=== PATIENT | female | born 1945 | race Caucasian/White ===

== ENCOUNTER 2017-05-11 06:16 | Inpatient (IN) | payer BC, MEDICARE ==
--- NOTE | 2017-04-29 22:45 | HP ---
AMENDED REPORT NOW INCLUDES COSIGNER DESIGNATION - ESIGNED BEFORE ADJUSTMENT PREOPERATIVE HISTORY AND PHYSICAL: DATE OF ADMISSION/SURGERY: 05/11/17 DATE OF OFFICE VISIT: 04/28/17 ATTENDING SURGEON: Dr. Gia Del Cid * (DICTATED BY MELVINA BANKS) PROCEDURE: Left total shoulder reverse. CHIEF COMPLAINT: Left shoulder pain. HISTORY OF PRESENT ILLNESS: Alva is a 72-year-old left-hand dominant female , who presents to the clinic for ongoing left shoulder pain due to a massive rotator cuff tear and osteoarthritis of the left shoulder. She has failed conservative measures and has therefore agreed to undergo a left total shoulder reversal with Dr. Del Cid on 05/11/17. PAST MEDICAL HISTORY: Hypertension; diabetes, type 2; arthritis. PAST SURGICAL HISTORY: Cataract removal, bilateral shoulders, left wrist, tonsillectomy, D and C, and tubal ligation. MEDICATIONS: 1. Famotidine 20 mg 1 by mouth twice a day. 2. Lisinopril 10 mg 1 by mouth every day. 3. Diclofenac sodium 75 mg 1 tablet by mouth twice a day with food. 4. Metformin 500 mg 1 by mouth twice a day. 5. Calcium 600 and vitamin D 600/200 mg take 1 daily. 6. Vitamin C 500 mg 1 by mouth every day. 7. Ibuprofen 200 mg as needed. ALLERGIES: SULFA ANTIBIOTICS. FAMILY HISTORY: Positive for diabetes, hypertension, and heart disease. Denies family history of DVT or PE. SOCIAL HISTORY: She lives with her son. 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 She denies tobacco use. She reports occasional alcohol consumption. She is left hand dominant. REVIEW OF SYSTEMS: A 14-point review of systems was reviewed with the patient. Positive for the current complaint, otherwise negative. Denies history of DVT or PE. Denies bleeding disorder. Denies chest pain or shortness of breath. Denies prior complications with anesthesia. PHYSICAL EXAMINATION GENERAL: Well-developed, well-nourished, 72-year-old female, in no acute distress. Alert and oriented x3, appropriate mood and affect. VITAL SIGNS: Height 66, weight 172, blood pressure 140/74, respiratory rate 20 , temperature 97.4, BMI 27.8. HEENT: Normocephalic, atraumatic. PERRLA. NECK: Supple. Throat clear. PULMONARY: Lungs clear to auscultation bilaterally. No wheezing, rhonchi, or rales. CARDIO: Regular rate and rhythm, S1 and S2. No murmurs, gallops, or rubs. No edema. ABDOMEN: Positive bowel sounds, soft, nontender. NEURO: Alert and oriented x3. Cranial nerves grossly intact. Sensation is intact to light touch. MUSCULOSKELETAL: Left upper extremity: Skin is intact. No warmth or erythema. Forward flexion to 80 degrees, passively to 140. Abduction actively to 75 degrees, passively to 110. External rotation to 10 degrees, internal rotation to lumbar spine. +4/5 strength to supraspinatus testing. Positive Donn's. Positive Priest- Matt, Speed, and [place]. +2 radial pulse. Sensation intact to light touch distally. DIAGNOSTIC STUDIES: Multiple view x-rays of the left shoulder reveals severe osteoarthritis with superior migration of the humeral head. CT reveals the same thing. IMPRESSION: Left shoulder severe osteoarthritis and massive rotator cuff tear. PLAN: The patient is scheduled to undergo a left total shoulder reverse with Dr. Del Cid on 05/11/17. Preop labs revealed a urinary tract infection, which was treated with antibiotics. The patient will follow up with Dr. Del Cid 10 to 14 days postop for followup and suture removal. Percocet will be used for postop pain management. MELVINA BANKS [id number]/[facility] #: [id number] [facility]
[~2017-05-11 06:16] MED LIST: Buffered Lidocaine 0.9% SYRIN* 5 ML/SYR SYRINGE INTRADERM ONE; Famotidine IV* 10 MG/ML 2 ML (20 mg) IV ONE
[2017-05-11] MEDS ORDERED: Famotidine IV* 10 MG/ML 2 ML (20 mg) ONE (06:50)
[2017-05-11] MEDS ORDERED: Buffered Lidocaine 0.9% SYRIN* 5 ML/SYR SYRINGE ONE (06:50)
[2017-05-11] MEDS ORDERED: ceFAZolin 2 GM PREMIX (*) 50 ML IVPB ONE (06:51)
[2017-05-11] MEDS ORDERED: Midazolam* 1 MG/ML 5 ML VIAL (5 MG) ONE (07:12)
[2017-05-11] MEDS ORDERED: fentaNYL* 50 MCG/ML 2 ML VIAL (100 MCG VIAL) ONE (07:12)
[2017-05-11] MEDS ORDERED: ROPIVACAINE 5 MG/ML 30 ML BTL (0.5%) ONE (07:34)
[2017-05-11] MEDS ORDERED: Lidocaine 2% PF* 10 ML AMP ONE (07:34)
[2017-05-11] MEDS ORDERED: KETAMINE HCL* 50 MG/ML 10 ML VIAL ONE (08:53)
[2017-05-11] MEDS ORDERED: Lidocaine 2% PF * 5 ML VIAL ONE (09:05)
[2017-05-11] MEDS ORDERED: Propofol* 10 MG/ML 20 ML BTL IV PUSH ONE (09:05)
[2017-05-11] MEDS ORDERED: Ondansetron INJ* 2 MG/ML VIAL ONE (09:05)
[2017-05-11] MEDS ORDERED: Succinylcholine* 20 MG/ML 10 ML VIAL ONE (09:05)
[2017-05-11] MEDS ORDERED: Ketorolac INJ* 30 MG/ML 1 ML VIAL ONE (09:05)
[2017-05-11] MEDS ORDERED: Dexamethasone IV* 4 MG/ML 1 ML (4 MG) ONE (09:05)
[2017-05-11] MEDS ORDERED: DiMENhydriNATE IV* 50 MG/ML VIAL IV PUSH PRN (09:38)
[2017-05-11] MEDS ORDERED: HYDROmorphone INJ* 1 MG/ML CARPUJECT SYRINGE IV PRN (09:38)
[2017-05-11] MEDS ORDERED: oxyCODONE/Acetamin 5/325 MG* TAB PO PRN (09:38)
[2017-05-11] MEDS ORDERED: Gabapentin CAP(*) 300 MG PO ONE (09:43)
[2017-05-11] MEDS ORDERED: HYDROmorphone INJ* 1 MG/ML CARPUJECT SYRINGE ONE (10:19)
[2017-05-11] MEDS ORDERED: Bisacodyl SUPP* 10 MG SUPP PR PRN (10:56)
[2017-05-11] MEDS ORDERED: Polyethylene Glycol 3350* 17 GM PACKET PO PRN (10:56)
[2017-05-11] MEDS ORDERED: Temazepam CAP* 15 MG PO PRN (10:56)
[2017-05-11] MEDS ORDERED: Acetaminophen TAB* 325 MG PO PRN (10:56)
[2017-05-11] MEDS ORDERED: Morphine INJ* 2 MG/ML 1 ML SYRINGE (TWO MG - NEW SYRINGE VERSION) IV PRN (10:56)
[2017-05-11] MEDS ORDERED: Magnesium Hydroxide LIQ* 30 ML UDC PO PRN (10:56)
[2017-05-11] MEDS ORDERED: oxyCODONE TAB* 5 MG TAB PO PRN (10:56)
[2017-05-11] MEDS ORDERED: Ondansetron INJ* 2 MG/ML VIAL IV PRN (10:56)
[2017-05-11] MEDS ORDERED: diPHENhydraMINE IV* 50 MG/ML 1 ml VIAL (BENADRYL) IV PRN (10:56)
--- NOTE | 2017-05-11 12:15 | RAD ---
INDICATION: Postoperative. Left shoulder arthroplasty COMPARISON: December 24, 2016 TECHNIQUE: Routine frontal and Y views were obtained. FINDINGS: There is reversal shoulder arthroplasty. Both scapular and humeral components appear well seated. There are soft tissue changes compatible with recent surgery. There is AC joint osteoarthritis. IMPRESSION: LEFT SHOULDER ARTHROPLASTY. NO EVIDENCE OF HARDWARE FAILURE.
[2017-05-11] MEDS ORDERED: Dextrose 50% Syringe 50 ML* 25 GM/50 ML SYRINGE IV PUSH PRN (13:12)
--- NOTE | 2017-05-11 16:00 | CONS ---
CONSULTATION REPORT: DATE OF CONSULTATION: 05/11/17 ATTENDING SURGEON: Dr. Del Cid. CONSULTING PHYSICIAN: Dr. Everardo Bowens (dictation provided by Abraham Stahl NP) . PRIMARY CARE PHYSICIAN: Dr. Peng. PROCEDURE TODAY: Left total shoulder, reverse. HISTORY OF PRESENT ILLNESS: Alva is a 72-year-old female who was having ongoing left shoulder pain due to massive rotator cuff tear and osteoarthritis of the left shoulder. She has failed conservative measures and therefore today had a left total shoulder reverse with Dr. Del Cid. PAST MEDICAL HISTORY: Hypertension, diabetes type 2, and arthritis. PAST SURGICAL HISTORY: Cataract removal, bilateral shoulders, left wrist, tonsillectomy, D and C, and tubal ligation. HOME MEDICATIONS: 1. Sudafed 30 mg p.o. daily. 2. Metformin 500 mg p.o. t.i.d. 3. Ibuprofen 200 q. 8 hours p.r.n. pain. 4. Diclofenac sodium 75 mg p.o. b.i.d. 5. Calcium citrate 200 p.o. t.i.d. 6. Calcium carbonate 1 p.o. b.i.d. 7. Vitamin C 500 mg b.i.d. ALLERGIES: SULFA antibiotics. FAMILY HISTORY: Positive for diabetes, hypertension, heart disease. Denies family history of DVT or PE. SOCIAL HISTORY: She lives with her son. Denies alcohol or tobacco usage. When she is discharged from the hospital, for 1 week she will be staying with her son, Marin Felton, who was her healthcare proxy, and then she will return to her home where she lives with her other son. REVIEW OF SYSTEMS: Ms. Felton is sitting in her hospital room upright in bed , eating a clear liquid lunch. Appears her stated age and in good health. She denies visual changes, denies chest pain, shortness of breath, or cough. Denies constipation, diarrhea, hematuria, or urgency. Musculoskeletal: She denies muscle pain and at the time her left shoulder is still numb from the procedure and denies pain 0/10. Skin: She does have a dressing to the left shoulder, otherwise her skin is intact. Denies history of dizziness, anxiety, or depression. She states that she is not cold or hot intolerant. No unusual bleeding or bruising. PHYSICAL EXAM: General: She is a well developed, well nourished, 72-year-old female. She is in no acute distress, pain free. Alert and oriented x3. Upbeat in mood and affect. Her son is at the bedside visiting with her. Current vital signs: Temperature 96.8, heart rate 70, respiratory rate 16, O2 sats 96%, blood pressure is 103/70. HEENT: Normocephalic, atraumatic. Neck: Supple. She has moist mucous membranes to the mouth. Pulmonary: Lungs are clear to auscultation bilaterally. No wheezing, rhonchi, or rales. Cardio: Regular rate and rhythm. S1 and S2. No murmur, gallop, or rubs. No edema. Abdomen: Positive bowel sounds. Soft, nontender, hypoactive bowel sounds. Neuro: Alert and oriented x3. Cranial nerves grossly intact. Sensation is intact to light touch. Fingers on the left hand, she can feel but are starting to tingle with return of feeling. Musculoskeletal: Left lower extremity is in a sling. She is able to move her hand and fingers easily. Equal proc tech on both sides. Good range of motion of both legs. +2 pedal pulses. Sensation intact to light touch distally. DIAGNOSTIC STUDIES: Postoperatively, she had a shoulder x-ray, which states left shoulder arthroplasty no evidence of hardware failure. LABORATORY DATA: Her lab work since admission today her glucose preop was 133, postop is 222. On 04/15/17, her H and H showed 13.2 and 40. Her platelets count was 183. On 04/15/17 again her sodium was 138, potassium 4.5, chloride 104, carbon dioxide 26, BUN and creatinine is 25 and 1.18. Glucose was 94 at that time, which was a fasting level. Her TSH was 1.79. IMPRESSION: The patient is a 72-year-old, who after failing conservative treatment elected to have a left total shoulder reverse. She is currently sitting upright in bed having a clear liquid diet. Denies any nausea, vomiting , chest pain, or shortness of breath in the postop period. Her son is sitting at the bedside visiting with her as well. PLAN: 1. Left total shoulder reversal, to be managed by Orthopedics. 2. Hypertension. Currently is well controlled without any additional medications. 3. Diabetes type 2. We will hold her metformin. I placed her on fingersticks before meals and at h.s. We will cover before meals with lispro insulin. The patient is aware and in agreement. 4. Arthritis. We will provide pain medication as ordered. 5. FEN. She has IV LR at 100 until she has taken adequate p.o., advance diet to consistent carb as tolerated. 6. DVT prophylaxis per orthopedics. Currently, she is receiving Lovenox 40 mg daily. She is a full code. Her son, Chi, is her healthcare proxy, who she will be going home, to stay with for a week upon discharge. TIME SPENT: Time spent on this exam was approximately 60 minutes, with greater than half the time was spent [id number] with the patient obtaining history and physical, the other half was spent going over the plan of care and implementing the plan of care. I did discussed with Dr. Everardo Bowens, who is in agreement with plan. ABRAHAM STAHL, AMMON [id number]/[facility] #: [id number] [facility]
[2017-05-11] MEDS: ceFAZolin 1 GM VIAL(*) 1 GM in NS 0.9% 50 ML* 50 ML IVPB SCH (16:47)
[2017-05-11] MEDS: Insulin LISPRO* 1 UNITS UNIT SUBCUT SCH (17:55)
--- NOTE | 2017-05-11 19:00 | OP ---
OPERATIVE REPORT: DATE OF OPERATION: 05/11/17 DATE OF : 47 SURGEON: Gia Del Cid MD MECHANIC MARINE ENGINE: MELVINA Dc, as well as Glenny Mendez LPN. ANESTHESIOLOGIST: Dr. Fritz. ANESTHESIA: General interscalene block. PRE-OP DIAGNOSIS: Left shoulder rotator cuff arthropathy. OPERATIVE PROCEDURE: Left shoulder open biceps tenodesis and left reverse shoulder arthroplasty. ESTIMATED BLOOD LOSS: 200. IMPLANTS USED: Tornier Aequalis Flex Stem size 5B, reversed 6 mm polyethylene insert, 25 x 40 mm baseplate, and size 36 mm head. OUTPUT: One drain. INDICATIONS: Alva is a 72-year-old left-handed female who has had left shoulder pain. She has had previous rotator cuff repair. She has had persistent pain and incomplete relief of symptoms and she had failed conservative management. We discussed the options including reverse shoulder arthroplasty, she has elected to agree. The risks and benefits were discussed at length and include but are not limited to bleeding; infection; damage to nerves, vessels, surrounding structures; wound nonhealing; persistent pain; need for surgery; scaring; stiffness; incomplete relief of symptoms; fracture; and risk of DVT. DESCRIPTION OF PROCEDURE: The patient was greeted in the preoperative area by the attending surgeon, correct extremity was marked, consent was confirmed. The patient then underwent interscalene nerve block by the anesthesiologist after which she was brought back to the operating suite. She was placed in a supine position on the operating room table. She then underwent general anesthesia under endotracheal intubation after which she was placed in a lazy beach chair position. All bony prominences were padded. The left shoulder was draped free with chlorhexidine soap, scrub, and an alcohol wipe, and a final prep with ChloraPrep. After appropriate surgical pause indicating site, side, procedure, and administration of antibiotics, a deltopectoral incision was made sharply with a 15 blade, soft tissues were carefully dissected to expose the cephalic vein which was identified and then retracted laterally with the deltoid. Deltopectoral interval was further developed and retracted using a Kolbel retractor. The short head of the biceps was identified and the clavipectoral fascia was carefully released. The pec tendon was identified and the proximal 1.5 cm were then released using electrocautery. The biceps was then tenodesed to the pec using a heavy nonabsorbable suture, this was then tenotomized proximal so that soft tissue dissection was carefully followed into the biceps to find the bicipital groove and the borders of the subscapularis which was then released in the subscap peel back fashion. This was then tagged with a #5 Ethibond suture. This was gently retracted as the head was externally rotated. The humeral head had a full- thickness massive supraspinatus tear with tearing of the infraspinatus tendon. There was grade 4 changes of the humeral head and there were osteophytes about the neck. The head was gently externally rotated and brought through the wound, dislocated. The neck cut was then made free hand using the sagittal saw. The canal was then accessed using the canal finder, then sounding devices again sounded between a 5 and a 6 was then found to be appropriate. The broaching then began beginning with a starting broach and gradually progressed up to a size 5. This was found to have a good fit. A protection plate was then placed and the humerus was pushed back through the wound. The glenoid was then accessed and the superior, inferior, and glenohumeral ligaments were then carefully released from the capsular surface of the subscap with care to protect the nerves and vessels. Once this was released and the subscap was mobilized, it was then tucked back into the wound and the anterior aspect of the shoulder was exposed. The labrum was then removed beginning in the superior oblique to the 5 o'clock position using electrocautery device. The remaining inferior labrum was removed using a needle tip Bovie with traction on the sutures to prevent any neurovascular injury. The base of the glenoid had some remaining cartilage, although it did have some areas of grade 4 osteoarthritis with osteophytes. The cartilage was cleaned off using the Crespo , this was irrigated out of the wound. The size 25 aiming device was then used and placed in the glenoid. Inferiorly the guidewire was placed with excellent purchase. The face of the glenoid was then reamed using a 25 reamer on power and then a size 36 mm foot print reamer was then used on hand to complete the reaming to allow for the seating of the glenosphere. The cannulated drill bit 8 mm was then used to drill the baseplate and then a 6.5 mm drill was used to drill the peg hole. There was found to be a distance measured to about 40 mm. The size 40 x 25 mm glenoid base plate was then brought to the field and after the screw hole was tapped, this was then placed with excellent purchase. Three interlocking screws of the appropriate length were then placed superiorly, inferiorly, and anteriorly. The size 36 mm glenosphere was then impacted into position and the set screw was secured to allow for excellent purchase. The humerus was then brought back through the wound. The stem was accessed again and it was found to be somewhat loosened. A size 5 stem was impacted again with excellent purchase. The trial plate and liner were then chosen, the shoulder was then reduced and brought through range of motion. There was an osteophyte posterosuperiorly and the glenoid that was carefully removed, but range of motion is forward flexion to 150 and abduction to about 90 and external rotation to 55. The final implants were chosen and prepared on the back table by the attending surgeon. Drill holes were made through the humerus to pass #5 Ethibond sutures to then prepare the subscap. The final implant was then impacted into position with good position. The shoulder was then reduced, the wounds were copiously irrigated with sterile saline, the range of motion was still the same as with the trial stem. The subscap was closed using horizontal mattress sutures with the arm in gentle external rotation. An intraarticular drain was then placed. The wound was irrigated yet again, and the deltopectoral interval was closed with #2 Ti-Cron suture. The wounds were irrigated yet again and the skin was closed in layers with 2-0 Vicryl and then 3 -0 Monocryl. Sterile dressings were applied. A sling and Cryo/Cuff were then applied. She was awoken from anesthesia and transferred to PACU in stable condition. POSTOPERATIVE PLAN: She will get postoperative x-rays. Drain will be discharged on postop day 1. She will be on 24 hours of postoperative antibiotics. DVT prophylaxis considered and will only be done in house and she will go home on her usual regimen. She will be discharged on pain medications. I will see the patient back in 10 to 14 days. She is nonweightbearing for 6 weeks with only passive range of motion. [id number]/[facility] #: [id number] [facility]
[2017-05-11] MEDS: Famotidine TAB* 20 MG PO SCH (20:41)
[2017-05-11] MEDS: oxyCODONE/Acetamin 5/325 MG* TAB PO PRN (22:54)
[2017-05-12] MEDS: ceFAZolin 1 GM VIAL(*) 1 GM in NS 0.9% 50 ML* 50 ML IVPB SCH ×2 (00:02→07:44)
[2017-05-12] MEDS: oxyCODONE/Acetamin 5/325 MG* TAB PO PRN ×4 (03:05→21:25)
[2017-05-12 06:41] LABS: Hematocrit 23 % (35-47); Hemoglobin 7.8 g/dl (12.0-16.0); Mean Platelet Volume 9 um3 (7.4-10.4)
[2017-05-12 06:52] LABS: BUN/Creatinine Ratio 20.3 (8-20); Calcium 7.9 mg/dL (8.6-10.3); EGFR African American 58.1 (>60); EGFR Non-African American 45.2 (>60); Potassium 4.1 mmol/L (3.5-5.0)
[2017-05-12] MEDS: Insulin LISPRO* 1 UNITS UNIT SUBCUT SCH ×3 (08:29→17:53)
[2017-05-12] MEDS: Famotidine TAB* 20 MG PO SCH ×2 (08:30→21:25)
--- NOTE | 2017-05-12 11:38 | PN ---
Progress Note - Progress Note Date of Service: 05/12/17 SOAP: Subjective: []Patient seen OOB in chair. She felt lightheaded earlier this morning after working on shoulder exercises. Feels better now but does not feel ready to go home today. Her pain is well managed in her left shoulder. Objective: [] Vital Signs Temp 97.7 F 05/12/17 10:45 Pulse 75 05/12/17 10:45 Resp 16 05/12/17 10:45 BP 92/39 05/12/17 10:45 Pulse Ox 100 05/12/17 10:45 Intake & Output 05/11/17 05/12/17 05/12/17 18:59 06:59 18:59 Intake Total 2787 505 120 Output Total 500 400 Balance 2287 105 120 Intake: IV Fluids 2050 NS 50ML, Cefazolin 2G 50 lr 2000 IVPB 237 LR 237 Oral 500 505 120 Output: Hemovac Amount #1 200 Urine 500 200 Other: # Bowel Movements 0 0 Laboratory Results - last 24 hr 05/11/17 05/11/17 05/11/17 11:55 17:01 21:24 Hgb Hct Plt Count MPV Sodium Potassium Chloride Carbon Dioxide Anion Gap BUN Creatinine Est GFR ( Amer) Est GFR (Non-Af Amer) BUN/Creatinine Ratio Glucose POC Glucose (mg/dL) 222 H 196 H 169 H Calcium 05/12/17 05/12/17 05/12/17 06:31 06:31 07:50 Hgb 7.8 L Hct 23 L Plt Count 157 MPV 9 Sodium 134 Potassium 4.1 Chloride 103 Carbon Dioxide 25 Anion Gap 6 BUN 24 Creatinine 1.18 H Est GFR ( Amer) 58.1 Est GFR (Non-Af Amer) 45.2 BUN/Creatinine Ratio 20.3 H Glucose 130 H POC Glucose (mg/dL) 147 H Calcium 7.9 L Left shoulder dressings clean and dry, hemovac drain discontinued without difficulty, tip intact sling donned full motion all digits, 2+ radial pulse, excellent cap refill Assessment: []s/p Left reverse shoulder arthroplasty POD #1 acute post operative anemia Plan: []PT/OT Left shoulder 1 unit PRBC transfusion today Probable discharge home Tuesday if stable
[2017-05-12] MEDS: Enoxaparin(*) 40 MG/0.4 ML SYR SUBCUT SCH (12:00)
--- NOTE | 2017-05-12 17:17 | PN ---
Subjective Date of Service: 05/12/17 Interval History: Patient seen and examined at bedside. Patient became hypotensive earlier today when she was out of bed. After a unit of blood she feels much better. Pain controlled. Sugars up slightly Family History: Unchanged from Admission Social History: Unchanged from Admission Past Medical History: Unchanged from Admission Objective Active Medications: Acetaminophen (Tylenol Tab*) 650 mg PO Q4H PRN Bisacodyl (Dulcolax Supp*) [address] DAILY PRN Diphenhydramine HCl (Benadryl Iv*) 25 mg IV Q6H PRN Enoxaparin Sodium (Lovenox(*)) 40 mg SUBCUT Q24H HEATHER Famotidine (Pepcid Tab*) 10 mg PO BID HEATHER Lactated Ringer's (Lactated Ringers 1000 Ml Bag*) 1,000 mls @ 125 mls/hr IV PER RATE HEATHER Lactated Ringer's (Lactated Ringers 1000 Ml Bag*) 1,000 mls @ 100 mls/hr IV PER RATE HEATHER Insulin Human Lispro (Humalog*) 0 units SUBCUT AC HEATHER Lactulose (Lactulose*) 30 ml PO Q6H PRN Magnesium Hydroxide (Milk Of Magnesia Liq*) 30 ml PO Q6H PRN Morphine Sulfate (Morphine Inj (Syringe)*) 2 mg IV Q2H PRN Ondansetron HCl (Zofran Inj*) 4 mg IV Q6H PRN Oxycodone HCl (Roxycodone Tab*) 10 mg PO Q4H PRN Oxycodone/Acetaminophen (Percocet 5/325 Tab*) 1 tab PO Q4H PRN Oxycodone/Acetaminophen (Percocet 5/325 Tab*) 2 tab PO Q4H PRN Polyethylene Glycol/Electrolytes (Miralax*) 17 gm PO DAILY PRN Temazepam (Restoril Cap*) 15 mg PO BEDTIME PRN Vital Signs 05/11/17 05/11/17 05/11/17 18:05 19:47 21:37 Temperature 99.6 F 98.9 F Pulse Rate 67 71 Respiratory 15 16 18 Rate Blood Pressure 92/45 96/42 (mmHg) O2 Sat by Pulse 95 82 Oximetry 05/11/17 05/11/17 05/12/17 22:54 23:46 00:54 Temperature 98.4 F Pulse Rate 77 Respiratory 16 14 16 Rate Blood Pressure 91/44 (mmHg) O2 Sat by Pulse 97 Oximetry 05/12/17 05/12/17 05/12/17 03:05 03:57 05:05 Temperature 98.3 F Pulse Rate 92 Respiratory 16 16 16 Rate Blood Pressure 93/41 (mmHg) O2 Sat by Pulse 96 Oximetry 05/12/17 05/12/17 05/12/17 07:41 07:48 09:48 Temperature 97.6 F Pulse Rate 79 Respiratory 17 15 14 Rate Blood Pressure 97/44 (mmHg) O2 Sat by Pulse 97 Oximetry 05/12/17 05/12/17 05/12/17 10:06 10:45 11:41 Temperature 97.7 F 97.6 F Pulse Rate 57 75 86 Respiratory 22 16 18 Rate Blood Pressure 63/36 92/39 93/52 (mmHg) O2 Sat by Pulse 100 100 Oximetry 05/12/17 05/12/17 05/12/17 11:43 13:35 13:55 Temperature 97.8 F 97.5 F Pulse Rate 88 88 Respiratory 20 17 Rate Blood Pressure 120/50 122/45 (mmHg) O2 Sat by Pulse 96 100 Oximetry 05/12/17 05/12/17 05/12/17 14:00 15:44 15:45 Temperature 98.5 F Pulse Rate 81 Respiratory 18 17 17 Rate Blood Pressure 112/71 (mmHg) O2 Sat by Pulse 100 98 Oximetry 05/12/17 05/12/17 16:00 17:05 Temperature Pulse Rate Respiratory 18 18 Rate Blood Pressure (mmHg) O2 Sat by Pulse Oximetry Oxygen Devices in Use Now: None Appearance: sitting up in chair, NAD Eyes: No Scleral Icterus, PERRLA Ears/Nose/Mouth/Throat: NL Teeth, Lips, Gums Neck: NL Appearance and Movements; NL JVP Respiratory: Symmetrical Chest Expansion and Respiratory Effort, Clear to Auscultation Cardiovascular: NL Sounds; No Murmurs; No JVD, RRR Abdominal: NL Sounds; No Tenderness; No Distention Extremities: No Edema Skin: - - L shoulder incision C/D/I Neurological: Alert and Oriented x 3, NL Muscle Strength and Tone Result Diagrams: 05/12/17 06:31 05/12/17 06:31 Microbiology and Other Data: Microbiology 05/11/17 09:20 Wound Gram Stain - Final Tissue - Shoulder Left Tissue Culture - Preliminary No Growth Day 1 Assess/Plan/Problems-Billing Patient is a 72 y/o female with a hx of diabetes and HTN who underwent an elective left shoulder replacement on 05/11/2017 - Patient Problems (1) History of total replacement of left shoulder joint Comment: Management per Orthopedic surgery. BP stabilized after 1 unit of PRBC. Continue PT/OT. Pain control with PRN oxycodone. (2) Acute blood loss as cause of postoperative anemia Comment: Hypotensive this morning. Received one unit of PRBCs today. BP much better. Recheck H/H in AM. (3) HTN (hypertension) Comment: Controlled. Not on any medications at home. (4) Diabetes Comment: Sugars in the 150s. Continue Lispro sliding scale for now. Hold Metformin. (5) DVT prophylaxis Comment: SQ Lovenox (6) Full code status Status and Disposition: Inpatient. Management per Ortho.
--- NOTE | 2017-05-12 20:36 | PN ---
Progress Note - Progress Note Date of Service: 05/12/17 Note: POD#1 from L shoulder reverse. Feeling better. Was light headed with PT. Temp Pulse Resp BP Pulse Ox 98.5 F 81 16 112/71 98 05/12/17 15:44 05/12/17 15:44 05/12/17 19:12 05/12/17 15:44 05/12/17 16:00 NAD. left shoulder dressing in place. SILT about 1st dws, index and long finger , slightly diminished about ulnar 2 digits likely due to sling. 2+ radial pulse. Calf soft, nontender. Laboratory Results - last 24 hr 05/11/17 05/11/17 05/12/17 07:09 21:24 06:31 Hgb 7.8 L Hct 23 L Plt Count 157 MPV 9 Sodium Potassium Chloride Carbon Dioxide Anion Gap BUN Creatinine Est GFR ( Amer) Est GFR (Non-Af Amer) BUN/Creatinine Ratio Glucose POC Glucose (mg/dL) 169 H Calcium Blood Type O Negative Antibody Screen Negative Crossmatch See Detail 05/12/17 05/12/17 05/12/17 06:31 07:50 12:35 Hgb Hct Plt Count MPV Sodium 134 Potassium 4.1 Chloride 103 Carbon Dioxide 25 Anion Gap 6 BUN 24 Creatinine 1.18 H Est GFR ( Amer) 58.1 Est GFR (Non-Af Amer) 45.2 BUN/Creatinine Ratio 20.3 H Glucose 130 H POC Glucose (mg/dL) 147 H 221 H Calcium 7.9 L Blood Type Antibody Screen Crossmatch 05/12/17 17:02 Hgb Hct Plt Count MPV Sodium Potassium Chloride Carbon Dioxide Anion Gap BUN Creatinine Est GFR ( Amer) Est GFR (Non-Af Amer) BUN/Creatinine Ratio Glucose POC Glucose (mg/dL) 143 H Calcium Blood Type Antibody Screen Crossmatch A/P 72 yo POD#1 from L shoulder reverse. Doing well. s/p 1 unit for ACBLA Continue current care plan for discharge tomorrow if feeling better discussed post op care.
[2017-05-13] MEDS: oxyCODONE/Acetamin 5/325 MG* TAB PO PRN ×3 (04:15→13:53)
[2017-05-13 06:43] LABS: Hematocrit 26 % (35-47)
[2017-05-13 08:55] VITALS: BP 119/59
--- NOTE | 2017-05-13 09:24 | PN ---
Subjective Date of Service: 05/13/17 Interval History: Patient seen and examined at bedside. Sugars controlled. BP stable this morning. Family History: Unchanged from Admission Social History: Unchanged from Admission Past Medical History: Unchanged from Admission Objective Active Medications: Acetaminophen (Tylenol Tab*) 650 mg PO Q4H PRN Bisacodyl (Dulcolax Supp*) 10 mg HI DAILY PRN Dextrose (D50w Syringe 50 Ml*) 12.5 gm IV PUSH .FOR FS < 60 - SS PRN Diphenhydramine HCl (Benadryl Iv*) 25 mg IV Q6H PRN Enoxaparin Sodium (Lovenox(*)) 40 mg SUBCUT Q24H HEATHER Famotidine (Pepcid Tab*) 10 mg PO BID HEATHER Insulin Human Lispro (Humalog*) 0 units SUBCUT AC HEATHER Lactulose (Lactulose*) 30 ml PO Q6H PRN Magnesium Hydroxide (Milk Of Magnesia Liq*) 30 ml PO Q6H PRN Morphine Sulfate (Morphine Inj (Syringe)*) 2 mg IV Q2H PRN Ondansetron HCl (Zofran Inj*) 4 mg IV Q6H PRN Oxycodone HCl (Roxycodone Tab*) 10 mg PO Q4H PRN Oxycodone/Acetaminophen (Percocet 5/325 Tab*) 1 tab PO Q4H PRN Oxycodone/Acetaminophen (Percocet 5/325 Tab*) 2 tab PO Q4H PRN Polyethylene Glycol/Electrolytes (Miralax*) 17 gm PO DAILY PRN Temazepam (Restoril Cap*) 15 mg PO BEDTIME PRN 05/13/17 05/13/17 05/13/17 04:27 06:15 07:21 Temperature 98.1 F 98 F Pulse Rate 84 79 Respiratory 16 16 16 Rate Blood Pressure 120/56 119/59 (mmHg) O2 Sat by Pulse 99 95 Oximetry Oxygen Devices in Use Now: None Appearance: sitting up in bed, NAD Eyes: No Scleral Icterus, PERRLA Ears/Nose/Mouth/Throat: NL Teeth, Lips, Gums Neck: NL Appearance and Movements; NL JVP Respiratory: Symmetrical Chest Expansion and Respiratory Effort, Clear to Auscultation Cardiovascular: NL Sounds; No Murmurs; No JVD, RRR Abdominal: NL Sounds; No Tenderness; No Distention Extremities: No Edema Skin: No Rash or Ulcers, - - L shoulder incision C/D/I Neurological: Alert and Oriented x 3, NL Muscle Strength and Tone Lines/Tubes/Other Access: Clean, Dry and Intact Peripheral IV Nutrition: Taking PO's Result Diagrams: 05/13/17 06:21 05/12/17 06:31 Assess/Plan/Problems-Billing Patient is a 72 y/o female with a hx of diabetes and HTN who underwent an elective left shoulder replacement on 05/11/2017 - Patient Problems (1) History of total replacement of left shoulder joint Comment: Management per Orthopedic surgery. Hb to 9.0 today Continue PT/OT. Pain control with PRN oxycodone. (2) Acute blood loss as cause of postoperative anemia Comment: BP stable after 1 unit of PRBC yesterday. H/H to 9.0. (3) HTN (hypertension) Comment: Controlled. Not on any medications at home. (4) Diabetes Comment: Sugars in the 150s. Continue Lispro sliding scale for now. Can restart Metformin at discharge. (5) DVT prophylaxis Comment: SQ Lovenox (6) Full code status Status and Disposition: Inpatient. Management per Ortho. Sugars are stable. Will sign off for now. Please call with any further questions.
[2017-05-13] MEDS: Famotidine TAB* 20 MG PO SCH (09:45)
[2017-05-13] MEDS: Insulin LISPRO* 1 UNITS UNIT SUBCUT SCH ×2 (09:46→13:12)
--- NOTE | 2017-05-13 10:49 | PN ---
Progress Note - Progress Note Date of Service: 05/13/17 SOAP: Subjective: []Patient is seen OOB in chair eating breakfast. She is doing well, pain well managed. No further lightheadedness. Ready to go home. Objective: [] Vital Signs Temp 98 F 05/13/17 07:21 Pulse 79 05/13/17 07:21 Resp 16 05/13/17 09:46 BP 119/59 05/13/17 07:21 Pulse Ox 95 05/13/17 07:21 Intake & Output 05/12/17 05/13/17 05/13/17 18:59 06:59 18:59 Intake Total 2995 1591 225 Output Total 2150 1800 400 Balance 845 209 -327 Intake: IV Fluids 2100 1391 LR 2100 1391 IVPB 159 ABX - CEFAZOLIN 159 Oral 440 200 225 Packed Cells 296 Output: Urine 2150 1800 400 Other: # Bowel Movements 0 Laboratory Results - last 24 hr 05/11/17 05/12/17 05/12/17 07:09 12:35 17:02 Hgb Hct POC Glucose (mg/dL) 221 H 143 H Blood Type O Negative Antibody Screen Negative Crossmatch See Detail 05/12/17 05/13/17 05/13/17 21:22 06:21 07:24 Hgb 9.0 L Hct 26 L POC Glucose (mg/dL) 143 H 159 H Blood Type Antibody Screen Crossmatch Left shoulder dressings changed, telfa and tegaderm applied incision without drainage/benign 2+ radial pulse, still mild paresthesia in ulnar nerve distribution LUE, all fingers moving well, pink and warm Assessment: []s/p reverse TSR left, POD #2 Plan: []Discharge home today Follow up as scheduled with Dr. Del Cid
[2017-05-13] MEDS: Enoxaparin(*) 40 MG/0.4 ML SYR SUBCUT SCH (11:45)
--- NOTE | 2017-05-14 02:26 | DS ---
DISCHARGE SUMMARY: DATE OF ADMISSION: 05/11/17 DATE OF DISCHARGE: 05/13/17 ATTENDING PHYSICIAN: Dr. Del Cid * (DICTATED BY MELVINA RAMIREZ) ADMISSION DIAGNOSIS: Left shoulder rotator cuff arthropathy. DISCHARGE DIAGNOSES: 1. Left shoulder rotator cuff arthropathy. 2. Acute postoperative anemia secondary to blood loss. SURGERY PERFORMED: Left open biceps tenodesis and left reverse shoulder arthroplasty. HISTORY OF PRESENT ILLNESS AND HOSPITAL COURSE: The patient is a 72-year-old left handed female with ongoing shoulder pain after previous rotator cuff repair that failed conservative management. The patient elected to proceed with reverse shoulder arthroplasty and was taken to the operating room under the care of Dr. Del Cid on the date of 05/11/17. She tolerated this procedure well. She left the operating room in stable condition. Postoperatively, on postop day #1, she felt lightheaded and her blood pressures were running a little low. Her hemoglobin and hematocrit were low at 7.8 and 23. Therefore, 1 unit of packed red blood cells was transfused on 05/04/17 and this gave her an increased reading to 9.0 and 26 on 05/13/17. Her symptoms had completely resolved and she was doing very well in terms of her PT and OT goals with her pain being under good control. It was felt she was stable medically and orthopedically for discharge to home on the date of 05/13/17. CONDITION ON DISCHARGE: She is afebrile. Her vital signs are stable. She has mild paresthesias in the ulnar nerve distribution of the left upper extremity where she has excellent circulation. She has a 2+ radial pulse. She is moving all of her digits well and has excellent hospital medical biller strength. Her dressings were changed. Her incision is dry. There is moderate ecchymosis and some swelling as would be expected. A Tegaderm over Telfa was applied to her incision today. PLAN: She will be discussed to home. She will continue with the shoulder immobilizer, nonweightbearing on the left upper extremity, 90 degrees of forward elevation, 90 degrees of abduction, 30 degrees of external rotation passively. She may shower on 05/14/17 and we will keep a dry dressing on her incision until seen by Dr. Del Cid as scheduled in 7 to 10 days. If she has any difficulties with increased shoulder pain, any drainage, redness, fever, chills, the office will be contacted prior to her scheduled appointment with Dr. Del Cid. MELVINA RAMIREZ [id number]/CPS #: [id number] [place]
== END 2017-05-13 14:00 | disposition home or self-care (01) | DRG 315 ==
LOC: AA 06:16 → SSU 12:14
PROVIDERS: ADMIT Orthopaedic Surgery; ATTEND Orthopaedic Surgery
PROC: 0RRK00Z Replacement of Left Shoulder Joint with Reverse Ball and Socket Synthetic Substitute, Open Approach (ICD-10-PCS; 2017-05-11)
PROC: 0LS40ZZ Reposition Left Upper Arm Tendon, Open Approach (ICD-10-PCS; 2017-05-11)
PROC: 30233N1 Transfusion of Nonautologous Red Blood Cells into Peripheral Vein, Percutaneous Approach (ICD-10-PCS; principal; 2017-05-12)
DX: M19.012 Primary osteoarthritis, left shoulder (principal); I95.9 Hypotension, unspecified; D62 Acute posthemorrhagic anemia; M75.102 Unspecified rotator cuff tear or rupture of left shoulder, not specified as traumatic; I10 Essential (primary) hypertension; E11.9 Type 2 diabetes mellitus without complications; K21.9 Gastro-esophageal reflux disease without esophagitis; Z96.641 Presence of right artificial hip joint; M25.712 Osteophyte, left shoulder; Z88.2 Allergy status to sulfonamides; Z83.3 Family history of diabetes mellitus; Z82.49 Family history of ischemic heart disease and other diseases of the circulatory system; Z98.49 Cataract extraction status, unspecified eye; Z98.51 Tubal ligation status
CPT/HCPCS: 36415; 80048; 85014; 85018; 85049; 86850; 86900; 86901; 86922; 87070; 87205; 94760; A9270-GY; C1713; C1776; J0330; J0690; J1100; J1170; J1650; J1885; J2001; J2250; J2405; J2704; J2795; J3010; P9040

== ENCOUNTER 2018-11-10 08:31 | Emergency (ER) | payer BC ==
--- OUTSIDE RECORDS SUMMARY | 2018-11-10 08:46 | XMS REPORT | Continuity of Care Document ---
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 David Luna PayID: [id number] [address] [address] [place] [address] Advance Directives Description No Information Available Problems Date Description Provider Status Onset: 09/05/2018 Flatulence, eructation and gas Kait Rojas PA-C Active pain Onset: 09/05/2018 Generalized abdominal pain Kait Rojas PA-C Active Onset: 09/05/2018 Abdominal pain Kait Rojas PA-C Active Onset: 09/05/2018 Epigastric pain Kait Rojas PA-C Active Onset: 09/05/2018 Diarrhea Kait Rojas PA-Nasim Active Onset: 09/05/2018 Weight decreased Kait Rojas PA-C Active Onset: 09/05/2018 Nausea MELVINA Stallworth-Nasim Active Onset: 09/05/2018 Gastroesophageal reflux disease Kait Rojas PA-C Active Family History Date Family Member(s) Observation Comments First Brother Prostate Cancer Social History Type Date Description Comments Sex Unknown Tobacco Use Start: Unknown Patient has never smoked Smoking Status Reviewed: 09/05/18 Patient has never smoked Allergies, Adverse Reactions, Alerts Date Description Reaction Status Severity Comments 08/18/2018 Dairy Active Medications Medication Date Status Form Strength Qnty SIG Indications Ordering Provider Lisinopril Active Tablets 10mg 30tabs I10 Midura, 015 Neo Huynh MD Diclofenac Active Tablets DR 75mg 60tabs Hart,Ni Sodium 012 AMMON shaver Metformin HCL Active Tablets 500mg 120tab Midura, 011 s Neo Huynh MD Calcium 600 Active Tablets 600mg Unknown 000 Colyte-Flavor Hx Solution 240gm 4000ml As R19.7 Kait L. Packs 019 - Rec directed Eduardotrom, PAAmosC 019 Immunizations Description No Information Available Vital Signs Date Vital Result Comment 09/05/2018 11:39am Height 66 inches 5'6" Weight 172.00 lb BP Systolic 152 mmHg BP Diastolic 86 mmHg Heart Rate 120 /min BMI (Body Mass Index) 27.8 kg/m2 Results Test Date Facility Test Result H/L Range Note Laboratory test 10/12/2018 [facility] Clotest SEE RESULT 1 finding BELOW Laboratory test 10/12/2018 [facility] Surgical SEE RESULT 2, 3 finding Interface BELOW Order Comprehensive 08/22/2017 N2N/CCD Import A/G Ratio 2.0 CALC 0.6-2.3 Metabolic Prof Albumin 4.3 g/dL 3.8-5.5 Alk. Phosphatase 90 U/L 30-110 Alt (SGPT) 22 U/L 7-35 Ast (Sgot) 16 U/L 5-34 BUN 21 mg/dL 6-26 BUN/Creat Ratio 19.1 CALC 8.0-36.0 Calcium 9.8 mg/dL 8.6-10.2 Carbon Dioxide 26 mEq/L 21-32 Chloride 107 mEq/L 94-112 Creatinine 1.1 mg/dL 0.6-1.4 GFR >60 ml/min/1.73m^ >=60 GFR Non- 52 ml/min/1.73m^ Low >=60 Globulin 2.1 g/dL 2.0-4.8 Glucose 144 mg/dL High 70-105 4 Potassium 4.6 mEq/L 3.6-5.5 Sodium 143 mEq/L 134-149 Total Bilirubin 0.6 mg/dL 0.2-1.3 Total Protein 6.4 g/dL 6.4-8.3 Lipid Profile 08/22/2017 N2N/CCD Import Cholesterol 217 mg/dL High 120- 200 HDL Cholesterol 59 mg/dL 30-85 HDL Risk Factor 3.7 CALC 0.0-4.4 LDL (Calculated) 136 CALC High 0-129 Triglycerides 109 mg/dL 30-200 VLDL Cholesterol 22 mg/dL 0-50 Comprehensive Metabolic Prof 06/11/2016 N2N/CCD Import A/G Ratio 2.0 CALC 0.6-2.3 Albumin 4.4 g/dL 3.8-5.5 Alk. Phosphatase 63 U/L 30-110 Alt (SGPT) 18 U/L 7-35 Ast (Sgot) 20 U/L 5-34 BUN 28 mg/dL High 6-26 5 BUN/Creat Ratio 25.5 CALC 8.0-36.0 Calcium 10.3 mg/dL High 8.6-10.2 6 Carbon Dioxide 21 mEq/L 21-32 Chloride 106 mEq/L 94-112 Creatinine 1.1 mg/dL 0.6-1.4 GFR >60 ml/min/1.73m^ >=60 GFR Non- 52 ml/min/1.73m^ Low >=60 Globulin 2.2 g/dL 2.0-4.8 Glucose 99 mg/dL 70-105 Potassium 4.6 mEq/L 3.6-5.5 Sodium 143 mEq/L 134-149 Total Bilirubin 0.5 mg/dL 0.2-1.3 Total Protein 6.6 g/dL 6.4-8.3 1 SEE RESULT BELOW Name: DAVID LUNA : [address]: Valentine Peterson MD Acct: [id number] Unit: [id number] AGE: 73 Location: [facility] Re10/12/18 SEX: F Status: DEP REF SPEC: [id number] MARGARITO: 10/12/18-[address] [facility] [address]: Valentine Contreras MD REQ: [id number] RECD: 10/12/18-1306 STATUS: MOLINA MENA DR: Neo Peng MD _ SOURCE: GAS ANTRUM SPDESC: ORDERED: Clotest Procedure Result Reported Site Clotest Final 10/13/18- 48 ML Clotest Negative * ML - Main Lab . END OF REPORT DEPARTMENT OF PATHOLOGY, [address], [place], [place] [address] Bharath Burnette M.D. Director [facility] # [id number] SEE RESULT BELOW Name: DAVID LUNA : [address]: Valentine Peterson MD Acct: [id number] Unit: [id number] AGE: 73 Location: [facility] Re10/12/18 SEX: F Status: DEP REF SPEC: [id number] MARGARITO: 10/12/18-1020 [facility] DR: Valentine Contreras MD REQ: [id number] RECD: 10/12/18-6 STATUS: MOLINA MENA DR: Neo Peng MD _ SOURCE: GAS ANTRUM SPDESC: ORDERED: Clotest Procedure Result Reported Site Clotest Final 10/13/18- 0748 ML Clotest Negative * ML - Main Lab . END OF REPORT DEPARTMENT OF PATHOLOGY, [address] [place] [address] Bharath Burnette M.D. Director [facility] # [id number] SEE RESULT BELOW Name: DAVID LUNA : [address]: Valentine Peterson MD Acct: [id number] Unit: [id number] AGE: 73 Location: [facility] Re10/12/18 SEX: F Status: DEP REF SPEC: [id number] MARGARITO: 10/12/18-[address] [facility] [address]: Valentine Contreras MD REQ: [id number] RECD: 10/12/181234 STATUS: JAMAL MENA DR: Neo Peng MD _ ORDERED: LEVEL 4/6 COMMENTS: [id number] FINAL DIAGNOSIS 1. Duodenum, biopsy: -- Benign small intestinal mucosa with no significant pathologic abnormalities. -- No evidence of villous blunting or increased intraepithelial lymphocytes. 2. Stomach, antrum, biopsy: -- Focally eroded antral and body-type gastric mucosa with moderate chronic gastritis; see comment. -- No evidence of atrophic gastritis. 3. Stomach, body, biopsy: -- Body-type gastric mucosa with no significant pathologic abnormalities. -- No evidence of Helicobacter organisms. -- No evidence of atrophic gastritis. 4. Esophagus, distal, biopsy: -- Benign squamous mucosa with mild erosive changes. -- No columnar component present for evaluation. 5. Esophagus, mid, biopsy: -- Benign squamous mucosa with mild erosive changes. -- No evidence of eosinophilic esophagitis. -- No evidence of fungal organisms or viral cytopathic effect. 6. Colon, random, biopsy: -- Benign colonic mucosa with no significant pathologic abnormalities. -- No evidence of microscopic colitis. COMMENT: An H. pylori immunohistochemical stain is pending for specimen 2 and the results will be reported in an addendum. CONTINUED ON NEXT PAGE DEPARTMENT OF PATHOLOGY, [address] [place] [address] Bharath Burnette M.D. Director [facility] # [id number] RUN DATE: 10/13/18 [facility] LAB LIVE PAGE 2 Patient: DAVID LUNA [id number] (Continued) CLINICAL HISTORY (Continued) CLINICAL HISTORY Weight loss, nausea, gastroesophageal reflux disease; diarrhea PRE-OPERATIVE DIAGNOSIS 2-3) Rule out atrophic gastritis; 5) rule out eosinophilic esophagitis, fungal, herpes simplex virus and CMV; 6) rule out microscopic colitis POST-OPERATIVE DIAGNOSIS EGD: mild to moderate esophagitis to mid trachealization; mid and distal biopsy; gastroesophageal junction at 38 cm; linear redness erosions antrum; body ( pale) - biopsy; duodenum - erythema, biopsy; erosions/ nodular/ first and second duodenum; colonoscopy: to terminal ileum; normal; mild diverticulosis; random biopsy; internal hemorrhoid GROSS DESCRIPTION 1. The specimen is received in formalin labeled, Biopsy Duodenum, and consists of a 0.7 x 0.4 x 0.2 cm aggregate of mejia-pink irregular soft tissue fragments which is submitted entirely in one cassette. 2. The specimen is received in formalin labeled, Biopsy Antrum Erosion, and consists of a 0.9 by up to 0.5 x 0.2 cm aggregate of mejia-pink irregular soft tissue fragments which is submitted entirely in one cassette. 3. The specimen is received in formalin labeled, Biopsy Gastric Body, and consists of a 0.8 x 0.7 by up to 0.2 cm aggregate of mejia-pink irregular soft tissue fragments which is submitted entirely in one cassette. 4. The specimen is received in formalin labeled, Biopsy Esophagus Distal, and consists of a 0.5 x 0.3 x 0.2 cm aggregate of mejia-pink irregular soft tissue fragments which is submitted entirely in one cassette. 5. The specimen is received in formalin labeled, Biopsy Mid Esophagus, and consists of a 0.8 x 0.5 x 0.1 cm aggregate of translucent mejia-white irregular soft tissue fragments which is submitted entirely in one cassette. CONTINUED ON NEXT PAGE DEPARTMENT OF PATHOLOGY, [address] [place] [address] Bharath Burnette M.D. Director [facility] # [id number] RUN DATE: 10/13/18 [facility] LAB LIVE PAGE 3 Patient: LAURADAVID Camacho [id number] (Continued) GROSS DESCRIPTION (Continued) 6. The specimen is received in formalin labeled, Biopsy Random Colon, and consists of a 1.1 x 0.9 by up to 0.2 cm aggregate of emjia-pink irregular soft tissue fragments which is submitted entirely in one cassette. Signed by and Reported on: Carmela Ramachandran MD 10/13/18 1356 END OF REPORT DEPARTMENT OF PATHOLOGY, [address] [place] [address], [place] [address] Bharath Burnette M.D. Director [facility] # [id number] SEE RESULT BELOW Name: DAVID LUNA : [address]: Valentine Peterson MD Acct: [id number] Unit: [id number] AGE: 73 Location: [facility] Re10/12/18 SEX: F Status: DEP REF SPEC: [id number] MAGRARITO: 10/12/18-101[address] [facility] [address]: Valentine Contreras MD REQ: [id number] RECD: 10/12/18-1234 STATUS: JAMAL MENA DR: Neo Peng MD _ ORDERED: LEVEL 4/6 COMMENTS: [id number] FINAL DIAGNOSIS 1. Duodenum, biopsy: -- Benign small intestinal mucosa with no significant pathologic abnormalities. -- No evidence of villous blunting or increased intraepithelial lymphocytes. 2. Stomach, antrum, biopsy: -- Focally eroded antral and body-type gastric mucosa with moderate chronic gastritis; see comment. -- No evidence of atrophic gastritis. 3. Stomach, body, biopsy: -- Body-type gastric mucosa with no significant pathologic abnormalities. -- No evidence of Helicobacter organisms. -- No evidence of atrophic gastritis. 4. Esophagus, distal, biopsy: -- Benign squamous mucosa with mild erosive changes. -- No columnar component present for evaluation. 5. Esophagus, mid, biopsy: -- Benign squamous mucosa with mild erosive changes. -- No evidence of eosinophilic esophagitis. -- No evidence of fungal organisms or viral cytopathic effect. 6. Colon, random, biopsy: -- Benign colonic mucosa with no significant pathologic abnormalities. -- No evidence of microscopic colitis. COMMENT: An H. pylori immunohistochemical stain is pending for specimen 2 and the results will be reported in an addendum. CONTINUED ON NEXT PAGE DEPARTMENT OF PATHOLOGY, [address] [place] [address] Bharath Burnette M.D. Director [facility] # [id number] RUN DATE: 10/13/18 [facility] LAB LIVE PAGE 2 Patient: DAVID LUNA [id number] (Continued) CLINICAL HISTORY (Continued) CLINICAL HISTORY Weight loss, nausea, gastroesophageal reflux disease; diarrhea PRE-OPERATIVE DIAGNOSIS 2-3) Rule out atrophic gastritis; 5) rule out eosinophilic esophagitis, fungal, herpes simplex virus and CMV; 6) rule out microscopic colitis POST-OPERATIVE DIAGNOSIS EGD: mild to moderate esophagitis to mid trachealization; mid and distal biopsy; gastroesophageal junction at 38 cm; linear redness erosions antrum; body ( pale) - biopsy; duodenum - erythema, biopsy; erosions/ nodular/ first and second duodenum; colonoscopy: to terminal ileum; normal; mild diverticulosis; random biopsy; internal hemorrhoid GROSS DESCRIPTION 1. The specimen is received in formalin labeled, Biopsy Duodenum, and consists of a 0.7 x 0.4 x 0.2 cm aggregate of mejia-pink irregular soft tissue fragments which is submitted entirely in one cassette. 2. The specimen is received in formalin labeled, Biopsy Antrum Erosion, and consists of a 0.9 by up to 0.5 x 0.2 cm aggregate of mejia-pink irregular soft tissue fragments which is submitted entirely in one cassette. 3. The specimen is received in formalin labeled, Biopsy Gastric Body, and consists of a 0.8 x 0.7 by up to 0.2 cm aggregate of mejia-pink irregular soft tissue fragments which is submitted entirely in one cassette. 4. The specimen is received in formalin labeled, Biopsy Esophagus Distal, and consists of a 0.5 x 0.3 x 0.2 cm aggregate of mejia-pink irregular soft tissue fragments which is submitted entirely in one cassette. 5. The specimen is received in formalin labeled, Biopsy Mid Esophagus, and consists of a 0.8 x 0.5 x 0.1 cm aggregate of translucent mejia-white irregular soft tissue fragments which is submitted entirely in one cassette. CONTINUED ON NEXT PAGE DEPARTMENT OF PATHOLOGY, [address] [place] [address] Bharath Burnette M.D. Director [facility] # [id number] RUN DATE: 10/13/18 [facility] LAB LIVE PAGE 3 Patient: DAVID LUNA [id number] (Continued) GROSS DESCRIPTION (Continued) 6. The specimen is received in formalin labeled, Biopsy Random Colon, and consists of a 1.1 x 0.9 by up to 0.2 cm aggregate of mejia-pink irregular soft tissue fragments which is submitted entirely in one cassette. Signed by and Reported on: Carmela Ramachandran MD 10/13/18 1356 END OF REPORT DEPARTMENT OF PATHOLOGY, [address] [place] [address] Bharath Burnette M.D. Director [facility] # [id number] SEE RESULT BELOW Name: DAVID LUNA : [address]: Valentine Peterson MD Acct: [id number] Unit: [id number] AGE: 73 Location: [facility] Re10/12/18 SEX: F Status: DEP REF SPEC: [id number] MARGARITO: 10/12/18-[address] [facility] [address]: Valentine Contreras MD REQ: [id number] RECD: 10/12/18-1234 STATUS: JAMAL MENA DR: Neo Peng MD _ ORDERED: LEVEL 4/6, IMMUNO-FIRST COMMENTS: [id number] ADDENDUM An H. pylori immunohistochemical stain, with appropriately reacting controls , was performed on sections cut from specimen 2 and is negative for Helicobacter organisms. Addendum Signed (signature on file) Carmela Ramachandran MD 12/01 1141 FINAL DIAGNOSIS 1. Duodenum, biopsy: -- Benign small intestinal mucosa with no significant pathologic abnormalities. -- No evidence of villous blunting or increased intraepithelial lymphocytes. 2. Stomach, antrum, biopsy: -- Focally eroded antral and body-type gastric mucosa with moderate chronic gastritis; see comment. -- No evidence of atrophic gastritis. 3. Stomach, body, biopsy: -- Body-type gastric mucosa with no significant pathologic abnormalities. -- No evidence of Helicobacter organisms. -- No evidence of atrophic gastritis. 4. Esophagus, distal, biopsy: -- Benign squamous mucosa with mild erosive changes. -- No columnar component present for evaluation. 5. Esophagus, mid, biopsy: -- Benign squamous mucosa with mild erosive changes. -- No evidence of eosinophilic esophagitis. -- No evidence of fungal organisms or viral cytopathic effect. CONTINUED ON NEXT PAGE DEPARTMENT OF PATHOLOGY, [address] [place] [address] Bharath Burnette M.D. Director [facility] # [id number] RUN DATE: 10/16/18 [facility] LAB LIVE PAGE 2 Patient: DAVID LUNA [id number] (Continued) FINAL DIAGNOSIS (Continued) 6. Colon, random, biopsy: -- Benign colonic mucosa with no significant pathologic abnormalities. -- No evidence of microscopic colitis. COMMENT: An H. pylori immunohistochemical stain is pending for specimen 2 and the results will be reported in an addendum. CLINICAL HISTORY Weight loss, nausea, gastroesophageal reflux disease; diarrhea PRE-OPERATIVE DIAGNOSIS 2-3) Rule out atrophic gastritis; 5) rule out eosinophilic esophagitis, fungal, herpes simplex virus and CMV; 6) rule out microscopic colitis POST-OPERATIVE DIAGNOSIS EGD: mild to moderate esophagitis to mid trachealization; mid and distal biopsy; gastroesophageal junction at 38 cm; linear redness erosions antrum; body ( pale) - biopsy; duodenum - erythema, biopsy; erosions/ nodular/ first and second duodenum; colonoscopy: to terminal ileum; normal; mild diverticulosis; random biopsy; internal hemorrhoid GROSS DESCRIPTION 1. The specimen is received in formalin labeled, Biopsy Duodenum, and consists of a 0.7 x 0.4 x 0.2 cm aggregate of mejia-pink irregular soft tissue fragments which is submitted entirely in one cassette. 2. The specimen is received in formalin labeled, Biopsy Antrum Erosion, and consists of a 0.9 by up to 0.5 x 0.2 cm aggregate of mejia-pink irregular soft tissue fragments which is submitted entirely in one cassette. 3. The specimen is received in formalin labeled, Biopsy Gastric Body, and consists of a 0.8 x 0.7 by up to 0.2 cm aggregate of mejia-pink irregular soft tissue fragments which is CONTINUED ON NEXT PAGE DEPARTMENT OF PATHOLOGY, [address] [place] [address] Bharath Burnette M.D. Director [facility] # [id number] RUN DATE: 10/16/18 [facility] LAB LIVE PAGE 3 Patient: DAVID LUNA [id number] (Continued) GROSS DESCRIPTION (Continued) submitted entirely in one cassette. 4. The specimen is received in formalin labeled, Biopsy Esophagus Distal, and consists of a 0.5 x 0.3 x 0.2 cm aggregate of mejia-pink irregular soft tissue fragments which is submitted entirely in one cassette. 5. The specimen is received in formalin labeled, Biopsy Mid Esophagus, and consists of a 0.8 x 0.5 x 0.1 cm aggregate of translucent mejia-white irregular soft tissue fragments which is submitted entirely in one cassette. 6. The specimen is received in formalin labeled, Biopsy Random Colon, and consists of a 1.1 x 0.9 by up to 0.2 cm aggregate of mejia-pink irregular soft tissue fragments which is submitted entirely in one cassette. Signed by and Reported on: Carmela Ramachandran MD 10/13/18 1356 END OF REPORT DEPARTMENT OF PATHOLOGY, [address] [place] [address] Bharath Burnette M.D. Director [facility] # [id number] SEE RESULT BELOW Name: DAVID LUNA : [address]: Valentine Peterson MD Acct: [id number] Unit: [id number] AGE: 73 Location: [facility] Re10/12/18 SEX: F Status: DEP REF SPEC: [id number] MARGARITO: 10/12/18-[address]: Valentine Contreras MD REQ: [id number] RECD: 10/12/18-1234 STATUS: JAMAL MENA DR: Neo Peng MD _ ORDERED: LEVEL 4/6, IMMUNO-FIRST COMMENTS: [id number] ADDENDUM An H. pylori immunohistochemical stain, with appropriately reacting controls , was performed on sections cut from specimen 2 and is negative for Helicobacter organisms. Addendum Signed (signature on file) Carmela Ramachandran MD 12/01 1141 FINAL DIAGNOSIS 1. Duodenum, biopsy: -- Benign small intestinal mucosa with no significant pathologic abnormalities. -- No evidence of villous blunting or increased intraepithelial lymphocytes. 2. Stomach, antrum, biopsy: -- Focally eroded antral and body-type gastric mucosa with moderate chronic gastritis; see comment. -- No evidence of atrophic gastritis. 3. Stomach, body, biopsy: -- Body-type gastric mucosa with no significant pathologic abnormalities. -- No evidence of Helicobacter organisms. -- No evidence of atrophic gastritis. 4. Esophagus, distal, biopsy: -- Benign squamous mucosa with mild erosive changes. -- No columnar component present for evaluation. 5. Esophagus, mid, biopsy: -- Benign squamous mucosa with mild erosive changes. -- No evidence of eosinophilic esophagitis. -- No evidence of fungal organisms or viral cytopathic effect. CONTINUED ON NEXT PAGE DEPARTMENT OF PATHOLOGY, [address] [place] [address] Bharath Burnette M.D. Director [facility] # [id number] RUN DATE: 10/16/18 [facility] LAB LIVE PAGE 2 Patient: DAVID LUNA [id number] (Continued) FINAL DIAGNOSIS (Continued) 6. Colon, random, biopsy: -- Benign colonic mucosa with no significant pathologic abnormalities. -- No evidence of microscopic colitis. COMMENT: An H. pylori immunohistochemical stain is pending for specimen 2 and the results will be reported in an addendum. CLINICAL HISTORY Weight loss, nausea, gastroesophageal reflux disease; diarrhea PRE-OPERATIVE DIAGNOSIS 2-3) Rule out atrophic gastritis; 5) rule out eosinophilic esophagitis, fungal, herpes simplex virus and CMV; 6) rule out microscopic colitis POST-OPERATIVE DIAGNOSIS EGD: mild to moderate esophagitis to mid trachealization; mid and distal biopsy; gastroesophageal junction at 38 cm; linear redness erosions antrum; body ( pale) - biopsy; duodenum - erythema, biopsy; erosions/ nodular/ first and second duodenum; colonoscopy: to terminal ileum; normal; mild diverticulosis; random biopsy; internal hemorrhoid GROSS DESCRIPTION 1. The specimen is received in formalin labeled, Biopsy Duodenum, and consists of a 0.7 x 0.4 x 0.2 cm aggregate of mejia-pink irregular soft tissue fragments which is submitted entirely in one cassette. 2. The specimen is received in formalin labeled, Biopsy Antrum Erosion, and consists of a 0.9 by up to 0.5 x 0.2 cm aggregate of mejia-pink irregular soft tissue fragments which is submitted entirely in one cassette. 3. The specimen is received in formalin labeled, Biopsy Gastric Body, and consists of a 0.8 x 0.7 by up to 0.2 cm aggregate of mejia-pink irregular soft tissue fragments which is CONTINUED ON NEXT PAGE DEPARTMENT OF PATHOLOGY, [address] [place] [address] Bharath Burnette M.D. Director [facility] # [id number] RUN DATE: 10/16/18 [facility] LAB LIVE PAGE 3 Patient: DAVID LUNA [id number] (Continued) GROSS DESCRIPTION (Continued) submitted entirely in one cassette. 4. The specimen is received in formalin labeled, Biopsy Esophagus Distal, and consists of a 0.5 x 0.3 x 0.2 cm aggregate of mejia-pink irregular soft tissue fragments which is submitted entirely in one cassette. 5. The specimen is received in formalin labeled, Biopsy Mid Esophagus, and consists of a 0.8 x 0.5 x 0.1 cm aggregate of translucent mejia-white irregular soft tissue fragments which is submitted entirely in one cassette. 6. The specimen is received in formalin labeled, Biopsy Random Colon, and consists of a 1.1 x 0.9 by up to 0.2 cm aggregate of mejia-pink irregular soft tissue fragments which is submitted entirely in one cassette. Signed by and Reported on: Carmela Ramachandran MD 10/13/18 1356 END OF REPORT DEPARTMENT OF PATHOLOGY, [address] [place] [address] Bharath Burnette M.D. Director [facility] # [id number] 4 consistent w/ previous results 5 RESULTS VERIFIED BY REPEAT ANALYSIS 6 RESULTS VERIFIED BY REPEAT ANALYSIS Procedures Date Code Description Status 08/05/2004 75706 Colonscopy+Biopsy Completed Encounters Type Date Location Provider Dx Diagnosis Office Visit 09/05/2018 Gastroenterology Kait Collins K21.9 [facility] ADAM Rojas reflux disease without esophagitis R11.0 Nausea R63.4 Abnormal weight loss R19.7 Diarrhea, unspecified R10.84 Generalized abdominal pain R14.0 Abdominal distension (gaseous) Plan of Treatment Future Appointment(s):11/06/2018 9:30 am - Kait Rojas [facility]-C [facility]/05[facility]2018 - MELVINA Stallworth- CK21.9 Gastro-esophageal reflux disease without zxtctrtijuzX53.0 UvjnbdS93.4 Abnormal weight lossR19.7 Diarrhea, unspecifiedNew Medication:Colyte-Flavor Packs 240 gm - As directedComments:RISKS AND BENEFITS OF THE PROCEDURE WERE DISCUSSED WITH PATIENT.R10.84 Generalized abdominal painR14.0 Abdominal distension (gaseous)
--- OUTSIDE RECORDS SUMMARY | 2018-11-10 08:46 | XMS REPORT | Continuity of Care Document ---
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 Neo Peng MD Primary Care Physician Unavailable Payers Date Identification Numbers Payment Provider Subscriber Expires: 2018 Policy Number: [id number] Medicare David Luna PayID: [id number] [facility] [address] [place] [address] Policy Number: [id number] [facility] David Luna PayID: [id number] [address] [address] [place] [address] Advance Directives Description No Information Available Problems Date Description Provider Status Onset: 09/05/2018 Flatulence, eructation and gas Kait Rojas PA-C Active pain Onset: 09/05/2018 Generalized abdominal pain Kait Rojas PA-C Active Onset: 09/05/2018 Abdominal pain Kait Rojas PA-C Active Onset: 09/05/2018 Epigastric pain Kait Rojas PA-C Active Onset: 09/05/2018 Diarrhea Kait Rojas PA-C Active Onset: 09/05/2018 Weight decreased Kait Rojas [...] Result H/L Range Note Laboratory test 10/12/2018 [facility] [place] SEE RESULT 1 finding BELOW Laboratory test 10/12/2018 [facility] Surgical SEE RESULT 2, 3 finding Pathology BELOW Comprehensive 08/22/2017 N2N/CCD Import A/G Ratio 2.0 [...] [address]: Valentine Peterson MD Acct: [id number] Unit: [id number] AGE: 73 Location: [facility] Re10/12/18 SEX: F Status: DEP REF SPEC: [id number] MARGARITO: 10/12/18-1020 [facility] [address]: Valentine Contreras MD REQ: [id number] RECD: 10/12/18-1305 STATUS: MOLINA MENA DR: Neo Peng MD _ SOURCE: GAS ANTRUM SPDESC: ORDERED: Clotest Procedure Result Reported Site Clotest Final 10/13/18- 48 ML Clotest Negative * ML - Main Lab . END OF REPORT DEPARTMENT OF PATHOLOGY, [address], [place], [place] [address] Bharath Burnette M.D. Director [facility] # [id number] SEE RESULT BELOW Name: DAVID LUNA : [address]: Valentine Peterson MD Acct: [id number] Unit: [id number] AGE: 73 Location: [facility] Re10/12/18 SEX: F Status: DEP REF SPEC: [id number] MARGARITO: 10/12/18-1020 [facility] [address]: Valentine Contreras MD REQ: [id number] RECD: 10/12/18-6 STATUS: MOLINA MENA DR: Neo Peng MD _ SOURCE: GAS ANTRUM SPDESC: ORDERED: Clotest Procedure Result Reported Site Clotest Final 10/13/18- 0748 ML Clotest Negative * ML - Main Lab . END OF REPORT DEPARTMENT OF PATHOLOGY, [address] [place] [address] Bharath Burnette M.D. Director [facility] # [id number] 2 [id number] SEE RESULT BELOW Name: DAVID LUNA : [address]: Valentine Peterson MD Acct: [id number] Unit: [id number] AGE: 73 Location: [facility] Re10/12/18 SEX: F Status: DEP REF SPEC: [id number] MARGARITO: 10/12/18-1015 [facility] [address]: Valentine Contreras MD REQ: [id number] RECD: 10/12/181234 STATUS: JAMAL MENA DR: Neo Peng MD _ ORDERED: LEVEL 4/6 COMMENTS: [id number] FINAL DIAGNOSIS 1. Duodenum, biopsy: -- Benign [...] CONTINUED ON NEXT PAGE DEPARTMENT OF PATHOLOGY, [address] [place] [address] Bharath Burnette M.D. Director [facility] # [id number] RUN DATE: 10/13/18 [facility] LAB LIVE PAGE 2 Patient: DAVID LUNA [id number] (Continued) CLINICAL HISTORY (Continued) CLINICAL HISTORY Weight [...] CONTINUED ON NEXT PAGE DEPARTMENT OF PATHOLOGY, [address] [place] [address] Bharath Burnette M.D. Director [facility] # [id number] RUN DATE: 10/13/18 [facility] LAB LIVE PAGE 3 Patient: LAURADAVID [id number] (Continued) GROSS DESCRIPTION (Continued) 6. The specimen is received in formalin labeled, Biopsy Random Colon, and consists of a 1.1 x 0.9 by up to 0.2 cm aggregate of mejia-pink irregular soft tissue fragments which is submitted entirely in one cassette. Signed by and Reported on: Carmela Ramachandran MD 10/13/18 1356 END OF REPORT DEPARTMENT OF PATHOLOGY, [address] [place] [address], [place] [address] Bharath Burnette M.D. Director [facility] # [id number] SEE RESULT BELOW Name: DAVID LUNA : [address]: Valentine Peterson MD Acct: [id number] Unit: [id number] AGE: 73 Location: [facility] Re10/12/18 SEX: F Status: DEP REF SPEC: [id number] MARGARITO: 10/12/18-1015 [facility] [address]: Valentine Contreras MD REQ: [id number] RECD: 10/12/181234 STATUS: JAMAL MENA DR: Neo Peng MD _ ORDERED: LEVEL 4/6 COMMENTS: [id number] FINAL DIAGNOSIS 1. Duodenum, biopsy: -- Benign [...] CONTINUED ON NEXT PAGE DEPARTMENT OF PATHOLOGY, [address] [place] [address] Bharath Burnette M.D. Director [facility] # [id number] RUN DATE: 10/13/18 [facility] LAB LIVE PAGE 2 Patient: DAVID LUNA [id number] (Continued) CLINICAL HISTORY (Continued) CLINICAL HISTORY Weight [...] CONTINUED ON NEXT PAGE DEPARTMENT OF PATHOLOGY, [address] [place] [address] Bharath Burnette M.D. Director [facility] # [id number] RUN DATE: 10/13/18 [facility] LAB LIVE PAGE 3 Patient: DAVID LUNA [id number] (Continued) GROSS DESCRIPTION (Continued) 6. The specimen is received in formalin labeled, Biopsy Random Colon, and consists of a 1.1 x 0.9 by up to 0.2 cm aggregate of mejia-pink irregular soft tissue fragments which is submitted entirely in one cassette. Signed by and Reported on: Carmela Ramachandran MD 10/13/18 1356 END OF REPORT DEPARTMENT OF PATHOLOGY, [address] [place] [address] Bharath Burnette M.D. Director [facility] # [id number] 4 consistent w/ previous results 5 RESULTS VERIFIED BY REPEAT ANALYSIS 6 RESULTS VERIFIED BY REPEAT ANALYSIS Procedures Date Code Description Status 08/05/2004 29055 Colonscopy+Biopsy Completed Encounters Type Date Location Provider Dx Diagnosis Office Visit 09/05/2018 Gastroenterology Kait Collins K21.9 Gastro- esophageal 11:30a [facility] ADAM Rojas reflux disease without esophagitis R11.0 Nausea R63.4 Abnormal weight loss R19.7 Diarrhea, unspecified R10.84 Generalized abdominal pain R14.0 Abdominal distension (gaseous) Plan of Treatment 09/05/2018 - MELVINA Stallworth-CK21.9 Gastro-esophageal reflux disease without hmonimjrvrhF40.0 YtwicmJ10.4 Abnormal weight lossR19.7 Diarrhea, unspecifiedNew Medication:Colyte-Flavor Packs 240 gm - As directedComments: RISKS AND BENEFITS OF THE PROCEDURE WERE DISCUSSED WITH PATIENT.R10.84 Generalized abdominal painR14.0 Abdominal distension (gaseous)
--- OUTSIDE RECORDS SUMMARY | 2018-11-10 08:46 | XMS REPORT | Continuity of Care Document ---
:1945 External Reference #:[id number] Author Name Valentine Peterson MD Address 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 Neo Peng MD Primary Care Physician Unavailable Payers Date Identification Numbers Payment Provider Subscriber Expires: 2018 Policy Number: [id number] Medicare David Luna PayID: [id number] [facility] [address] [place] [address] Policy Number: [id number] [facility] David Luna PayID: [id number] [address] [address] [place] [address] Advance Directives Description No Information Available Problems Date Description Provider Status Onset: 09/05/2018 Flatulence, eructation and gas Kait Rojas PA-C Active pain Onset: 09/05/2018 Generalized abdominal pain Kait Rojas PA-C Active Onset: 09/05/2018 Abdominal pain Kait Rojas PA-C Active Onset: 09/05/2018 Epigastric pain aKit Rojas PA-C Active Onset: 09/05/2018 Diarrhea Kait [...] Result H/L Range Note Laboratory test 10/12/2018 [facility] Clotest SEE RESULT 1 finding BELOW Laboratory test 10/12/2018 [facility] Surgical SEE RESULT 2, 3 finding Pathology [...] [address]: Valentine Peterson MD Acct: [id number] Unit: [id number] AGE: 73 Location: [facility] Re10/12/18 SEX: F Status: DEP REF SPEC: [id number] MARGARITO: 10/12/18-[address] [facility] [address]: Valentine Contreras MD REQ: [id number] RECD: 10/12/18-1305 STATUS: MOLINA MENA DR: Neo Peng MD _ SOURCE: GAS ANTRUM SPDESC: ORDERED: Clotest Procedure Result Reported Site Clotest Final 10/13/18- 48 ML Clotest Negative * ML - Main Lab . END OF REPORT DEPARTMENT OF PATHOLOGY, [address], [place], [place] [address] Bharath Burnette M.D. Director [facility] # [id number] SEE RESULT BELOW Name: DAVID LUNA : [address]: Valentine Peterson MD Acct: [id number] Unit: [id number] AGE: 73 Location: [facility] Re10/12/18 SEX: F Status: DEP REF SPEC: [id number] MARGARITO: 10/12/18-[address] [facility] [address]: Valentine Contreras MD REQ: [id number] RECD: 10/12/18-6 STATUS: MOLINA MENA DR: Neo Peng MD _ SOURCE: GAS ANTRUM SPDESC: ORDERED: Clotest Procedure Result Reported Site Clotest Final 10/13/18- 0748 ML Clotest Negative * ML - Main Lab . END OF REPORT DEPARTMENT OF PATHOLOGY, [address] [place] [address] Bharath Burnette M.D. Director [facility] # [id number] 2 [id number] SEE RESULT BELOW Name: DAVID LUNA : [address]: Valentine Peterson MD Acct: [id number] Unit: [id number] AGE: 73 Location: [facility] Re10/12/18 SEX: F Status: DEP REF SPEC: [id number] MARGARITO: 10/12/18-[address] [facility] [address]: Valentine Contreras MD REQ: [id number] RECD: 10/12/181234 STATUS: JAMAL MENA DR: Neo Peng MD _ ORDERED: LEVEL 4/6 COMMENTS: [id number] FINAL DIAGNOSIS 1. Duodenum, biopsy: -- Benign [...] ON NEXT PAGE DEPARTMENT OF PATHOLOGY, [address] [place] [address] Bharath Burnette M.D. Director [facility] # [id number] RUN DATE: 10/13/18 [facility] LAB LIVE PAGE 2 Patient: DAVID LUNA [id number] (Continued) CLINICAL HISTORY (Continued) CLINICAL HISTORY Weight [...] ON NEXT PAGE DEPARTMENT OF PATHOLOGY, [address] [place] [address] Bharath Burnette M.D. Director [facility] # [id number] RUN DATE: 10/13/18 [facility] LAB LIVE PAGE 3 Patient: LAURADAVID [id number] (Continued) GROSS DESCRIPTION (Continued) 6. The specimen is received in formalin labeled, Biopsy Random Colon, and consists of a 1.1 x 0.9 by up to 0.2 cm aggregate of mejia-pink irregular soft tissue fragments which is submitted entirely in one cassette. Signed by and Reported on: Carmela Ramachandran MD 10/13/18 1356 END OF REPORT DEPARTMENT OF PATHOLOGY, [address] [place] [address], [place] [address] Bharath Burnette M.D. Director [facility] # [id number] SEE RESULT BELOW Name: DAVID LUNA : [address]: Valentine Peterson MD Acct: [id number] Unit: [id number] AGE: 73 Location: [facility] Re10/12/18 SEX: F Status: DEP REF SPEC: [id number] MARGARITO: 10/12/18-[address] [facility] [address]: Valentine Contreras MD REQ: [id number] RECD: 10/12/181234 STATUS: JAMAL MENA DR: Neo Peng MD _ ORDERED: LEVEL 4/6 COMMENTS: [id number] FINAL DIAGNOSIS 1. Duodenum, biopsy: -- Benign [...] ON NEXT PAGE DEPARTMENT OF PATHOLOGY, [address] [place] [address] Bharath Burnette M.D. Director [facility] # [id number] RUN DATE: 10/13/18 [facility] LAB LIVE PAGE 2 Patient: DAVID LUNA [id number] (Continued) CLINICAL HISTORY (Continued) CLINICAL HISTORY Weight [...] ON NEXT PAGE DEPARTMENT OF PATHOLOGY, [address] [place] [address] Bharath Burnette M.D. Director [facility] # [id number] RUN DATE: 10/13/18 [facility] LAB LIVE PAGE 3 Patient: DAVID LUNA [id number] (Continued) GROSS DESCRIPTION (Continued) 6. The specimen is received in formalin labeled, Biopsy Random Colon, and consists of a 1.1 x 0.9 by up to 0.2 cm aggregate of mejia-pink irregular soft tissue fragments which is submitted entirely in one cassette. Signed by and Reported on: Carmela Ramachandran MD 10/13/18 1356 END OF REPORT DEPARTMENT OF PATHOLOGY, [address] [place] [address] Bharath Burnette M.D. Director [facility] # [id number] 4 consistent w/ previous results 5 RESULTS VERIFIED BY REPEAT ANALYSIS 6 RESULTS VERIFIED BY REPEAT ANALYSIS Procedures Date Code Description Status 08/05/2004 91319 Colonscopy+Biopsy Completed Encounters Type Date Location Provider Dx Diagnosis Office Visit 09/05/2018 Gastroenterology Kait Collins K21.9 Gastro- esophageal 11:30a [facility] ADAM Rojas reflux disease without esophagitis R11.0 Nausea R63.4 Abnormal weight loss R19.7 Diarrhea, unspecified R10.84 Generalized abdominal pain R14.0 Abdominal distension (gaseous) Plan of Treatment 09/05/2018 - MELVINA Stallwotrh-CK21.9 Gastro-esophageal reflux disease without gjxtrbmfgjqU76.0 MhbsdrB68.4 Abnormal weight lossR19.7 Diarrhea, unspecifiedNew Medication:Colyte-Flavor Packs 240 gm - As directedComments: RISKS AND BENEFITS OF THE PROCEDURE WERE DISCUSSED WITH PATIENT.R10.84 Generalized abdominal painR14.0 Abdominal distension (gaseous)
--- OUTSIDE RECORDS SUMMARY | 2018-11-10 08:46 | XMS REPORT | Continuity of Care Document ---
:1945 External Reference #:[id number] Author Name Valentine Peterson MD Address 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 Packs 019 - Rec directed Swgabrielletrom, PAJanneth 019 Immunizations Description No Information Available Vital Signs Date Vital Result Comment 09/05/2018 11:39am Height 66 inches 5'6" Weight 172.00 lb BP Systolic 152 mmHg BP Diastolic 86 mmHg Heart Rate 120 /min BMI (Body Mass Index) 27.8 kg/m2 Results Test Date Facility Test Result H/L Range Note Laboratory test 10/12/2018 [facility] Clotest SEE RESULT 1 finding BELOW Comprehensive 08/22/2017 N2N/CCD Import A/G Ratio [...] g/dL 2.0-4.8 Glucose 144 mg/dL High 70-105 2 Potassium 4.6 mEq/L 3.6-5.5 Sodium 143 mEq/L [...] U/L 5-34 BUN 28 mg/dL High 6-26 3 BUN/Creat Ratio 25.5 CALC 8.0-36.0 Calcium 10.3 mg/dL High 8.6-10.2 4 Carbon Dioxide 21 mEq/L 21-32 Chloride 106 [...] [address]: Valentine Peterson MD Acct: [id number] Unit: [id number] AGE: 73 Location: [facility] Re10/12/18 SEX: F Status: DEP REF SPEC: [id number] MARGARITO: 10/12/18-[address] [facility] [address]: Valentine Contreras MD REQ: [id number] RECD: 10/12/18 STATUS: MOLINA MENA DR: Neo Peng MD _ SOURCE: GAS ANTRUM SPDESC: ORDERED: Clotest Procedure Result Reported Site Clotest Final 10/13/18- 5548 ML Clotest Negative * ML - Main Lab . END OF REPORT DEPARTMENT OF PATHOLOGY, [address] [place] [address] Bharath Burnette M.D. Director [facility] # [id number] SEE RESULT BELOW Name: DAVID LUNA : [address]: Valentine Peterson MD Acct: [id number] Unit: [id number] AGE: 73 Location: [facility] Re10/12/18 SEX: F Status: DEP REF SPEC: [id number] MARGARITO: 10/12/18-[address] [facility] [address]: Valentine Contreras MD REQ: [id number] RECD: 10/12/18-1306 STATUS: MOLINA MENA DR: Neo Peng MD _ SOURCE: GAS ANTRUM SPDESC: ORDERED: Clotest Procedure Result Reported Site Clotest Final 10/13/18- 0748 ML Clotest Negative * ML - Main Lab . END OF REPORT DEPARTMENT OF PATHOLOGY, [address] [place] [address] Bharath Burnette M.D. Director [facility] # [id number] 2 consistent w/ previous results 3 RESULTS VERIFIED BY REPEAT ANALYSIS 4 RESULTS VERIFIED BY REPEAT ANALYSIS Procedures Date Code Description Status 08/05/2004 25290 Colonscopy+Biopsy Completed Encounters Type Date Location Provider Dx Diagnosis Office Visit 09/05/2018 Gastroenterology Kait Collins K21.9 Gastro- esophageal 11:30a [facility] ADAM Rojas reflux disease without esophagitis R11.0 Nausea R63.4 Abnormal weight loss R19.7 Diarrhea, unspecified R10.84 Generalized abdominal pain R14.0 Abdominal distension (gaseous) Plan of Treatment 09/05/2018 - JOE StallworthCK21.9 Gastro-esophageal reflux disease without hnjmcbkyatlU03.0 AdeumnC01.4 Abnormal weight lossR19.7 Diarrhea, unspecifiedNew Medication:Colyte-Flavor Packs 240 gm - As directedComments: RISKS AND BENEFITS OF THE PROCEDURE WERE DISCUSSED WITH PATIENT.R10.84 Generalized abdominal painR14.0 Abdominal distension (gaseous)
[2018-11-10 09:10] VITALS: BP 174/91
--- NOTE | 2018-11-10 10:16 | UC ---
Respiratory Complaint HPI - HPI Summary HPI Summary: cough x 4 weeks cough is productive , yellow sputum nasal congest, pnd, sinus pain and pressure, no fever, + chills, fatigue - History of Current Complaint Chief Complaint: UCRespiratory Stated Complaint: OCONNOR,SINUS CONCERN,COUGH Time Seen by Provider: 11/10/18 09:25 Hx Obtained From: Patient Onset/Duration: Gradual Onset, Lasting Weeks - 4, Still Present Timing: Constant Severity Initially: Moderate Severity Currently: Moderate Pain Intensity: 5 Character: Cough: Productive Aggravating Factors: Exertion, Deep Breaths Alleviating Factors: Nothing Associated Signs And Symptoms: Positive: Chills, URI. Negative: Calf Pain, Calf Swelling - Allergies/Home Medications Allergies/Adverse Reactions: Allergies Allergy/AdvReac Type Severity Reaction Status Date / Time lactose Allergy Diarrhea Verified 11/10/18 09:10 Sulfa (Sulfonamide Allergy Swelling Verified 11/10/18 09:10 Antibiotics) fiberglas Allergy Itching Uncoded 11/10/18 09:10 Home Medications: Home Medications Ondansetron ODT TAB* [Zofran 4 MG Odt TAB*] 4 mg PO ONCE PRN 11/10/18 [History Confirmed 11/10/18] Pantoprazole TAB * [Protonix TAB*] 40 mg PO DAILY 11/10/18 [History Confirmed ] PMH/Surg Hx/FS Hx/Imm Hx - Additional Past Medical History Additional PMH: Dehydration; diverticulae, intestinal irritation, stomach striations Endocrine History: Diabetes Cardiovascular History: Hypertension - Surgical History Surgical History: Yes Surgery Procedure, Year, and Place: 1969' DILATION AND CURETTAGE X 3, [facility]. 1959' TONSILLECTOMY AND ADENOIDECTOMY, [facility]. 1979' REMOVAL OF HERNIATED LUMBAR DISC, [facility] [place]. 1991 BILATERAL ROTATOR CUFF REPAIRS, [facility]. 1959' LEFT THUMB REPAIR, [facility]. right hip replacement - Family History Known Family History: Positive: Diabetes - Social History Alcohol Use: Occasionally Alcohol Amount: WINE 1 X MONTHLY Substance Use Type: None Smoking Status (MU): Never Smoked Tobacco - Immunization History Most Recent Influenza Vaccination: April 2017 Most Recent Tetanus Shot: 2012 Most Recent Pneumonia Vaccination: WITHIN 5 YEARS Review of Systems All Other Systems Reviewed And Are Negative: Yes Constitutional: Positive: Chills, Fatigue Skin: Positive: Negative Eyes: Positive: Negative ENT: Positive: Nasal Discharge, Sinus Congestion, Sinus Pain/Tenderness Respiratory: Positive: Cough Cardiovascular: Positive: Negative Is Patient Immunocompromised?: No Physical Exam Triage Information Reviewed: Yes Appearance: Well-Appearing, Ill-Appearing Vital Signs: Initial Vital Signs Temp 99.6 F 11/10/18 08:58 Pulse 104 11/10/18 08:58 Resp 24 11/10/18 08:58 BP 174/91 11/10/18 08:58 Pulse Ox 97 11/10/18 08:58 Vital Signs Reviewed: Yes Eye Exam: Normal Eyes: Positive: Conjunctiva Clear ENT: Positive: Normal ENT inspection, Hearing grossly normal, TMs normal. Negative: Pharynx normal, Pharyngeal erythema Neck: Positive: Supple, Nontender, No Lymphadenopathy Respiratory: Positive: Chest non-tender, Lungs clear, No respiratory distress Cardiovascular: Positive: Tachycardia Skin Exam: Normal Diagnostics - Radiology No standard instances Summary of Radiographic Findings: chest xray : Dehydration; diverticulae, intestinal irritation, stomach striations Respiratory Course/Dx - Differential Dx/Diagnosis Provider Diagnosis: Sinusitis, Bronchitis Discharge - Sign-Out/Discharge Documenting (check all that apply): Patient Departure All imaging exams completed and their final reports reviewed: Yes - Discharge Plan Condition: Stable Disposition: HOME Prescriptions: Amoxicillin/Clavulanate TAB* [Augmentin TAB 875*] 875 mg PO BID #20 tab Benzonatate CAP* [Tessalon 100 MG CAP*] 100 mg PO TID PRN #21 cap PRN Reason: Cough Patient Education Materials: Sinusitis (ED), Acute Bronchitis (ED) Referrals: Neo Peng MD [Primary Care Provider] - 5 Days - Billing Disposition and Condition Condition: STABLE Disposition: Home
== END 2018-11-10 10:14 | disposition home or self-care (01) ==
LOC: UCCORT 08:31
DX: J40 Bronchitis, not specified as acute or chronic (principal); J32.9 Chronic sinusitis, unspecified; E11.9 Type 2 diabetes mellitus without complications; I10 Essential (primary) hypertension; Z88.2 Allergy status to sulfonamides; Z91.011 Allergy to milk products; Z91.09 Other allergy status, other than to drugs and biological substances
CPT/HCPCS: 71046; 99212; G0463

== ENCOUNTER 2020-10-21 17:24 | Inpatient (IN) ==
[2020-10-21] MEDS ORDERED: NS 0.9% 1000 ml BAG 1,000 ML IV ONE (18:45)
[2020-10-21 19:33] LABS: ABS Lymphocytes 0.4 10^3/ul (1.0-4.8); ABS Monocytes 0.5 10^3/ul (0-0.8); ABS Neutrophils 16.2 10^3/ul (1.5-7.7); Hematocrit 44 % (35-47); Hemoglobin 14.2 g/dL (12.0-16.0); Lymphocyte % 2.1 %; Mean Corpuscular HGB Conc 32 g/dL (31-36); Mean Corpuscular Hemoglobin 28 pg (27-31); Mean Corpuscular Volume 87 fL (80-97); Mean Platelet Volume 10.1 fL (7.4-10.4); Platelet Count 211 10^3/uL (150-450); Red Blood Count 5.05 10^6 /uL (3.70-4.87); Red Cell Distribution Width 13 % (10-15); White Blood Count 17.1 10^3/uL (3.5-10.8)
[2020-10-21 19:58] LABS: ALT 23 U/L (7-52); AST 11 U/L (13-39); Albumin/Globulin Ratio 1.2 (1-3); Alkaline Phosphatase 132 U/L (34-104); BUN/Creatinine Ratio 23.1 (8-20); Blood Urea Nitrogen 89 mg/dL (6-24); CO2 Carbon Dioxide 16 mmol/L (22-32); Calcium 11.3 mg/dL (8.6-10.3); Chloride 85 mmol/L (101-111); EGFR African American 13.8 (>60); EGFR Non-African American 11.4 (>60); Globulin 3.3 g/dL (2-4); Sodium 123 mmol/L (135-145); Total Protein 7.3 g/dL (6.4-8.9)
[2020-10-21 19:59] LABS: Anion Gap 22 mmol/L (2-11); Potassium 5.4 mmol/L (3.5-5.0); Troponin I 0.03 ng/mL (<0.03)
[2020-10-21 20:20] LABS: Glucose 1023 mg/dL (70-100)
[2020-10-21 20:52] LABS: C Reactive Protein 4.22 mg/L (<8.01); Lipase 36 U/L (11.0-82.0)
[2020-10-21] MEDS ORDERED: NS 0.9% 1000 ml BAG 1,000 ML IV SCH (21:15)
[2020-10-21] MEDS ORDERED: Morphine 2 MG/ML SYRINGE IV PRN (21:25)
[2020-10-21 21:55] LABS: GGTP 23 U/L (9-64.0)
[2020-10-21] MEDS ORDERED: Insulin Infusion 100unit/100mL 100 UNIT/100 ML BAG IV SCH (22:00)
[2020-10-21] MEDS: Ondansetron 4 mg VIAL 2 MG/ML 2 ml VIAL IV PRN (22:14)
[2020-10-21] MEDS: hydrALAZINE 20 mg/ml 1 ML Vial IV IV SLOW PU PRN (22:14)
[2020-10-21 22:56] LABS: Calcium 9.9 mg/dL (8.6-10.3); Chloride 95 mmol/L (101-111); Sodium 129 mmol/L (135-145)
[2020-10-21 23:02] LABS: BUN/Creatinine Ratio 24.1 (8-20); Blood Urea Nitrogen 85 mg/dL (6-24); EGFR African American 15.3 (>60); EGFR Non-African American 12.6 (>60)
[2020-10-21 23:24] LABS: CO2 Carbon Dioxide 14 mmol/L (22-32)
[2020-10-21 23:25] LABS: Anion Gap 20 mmol/L (2-11); Glucose 827 mg/dL (70-100)
[2020-10-21] MEDS: Enoxaparin 30 MG/0.3 ML SYR SUBCUT SCH (23:26)
[2020-10-21] MEDS ORDERED: Lactated Ringers 1000 ml BAG 1,000 ML IV ONE (23:50)
[2020-10-22 00:01] LABS: Glucose Confirmatory 688 mg/dL (70-100)
[2020-10-22 00:39] LABS: Troponin I 0.05 ng/mL (<0.03)
[2020-10-22 01:33] LABS: Glucose Confirmatory 635 mg/dL (70-100)
[2020-10-22 01:39] LABS: Glucose Confirmatory 499 mg/dL (70-100)
[2020-10-22] MEDS: Mometasone/Formoter 100/5 MDI INH SCH ×3 (01:54→19:33)
[2020-10-22 01:59] LABS: Anion Gap 17 mmol/L (2-11); BUN/Creatinine Ratio 25.3 (8-20); Blood Urea Nitrogen 81 mg/dL (6-24); CO2 Carbon Dioxide 17 mmol/L (22-32); Calcium 10.1 mg/dL (8.6-10.3); Chloride 100 mmol/L (101-111); EGFR African American 17.1 (>60); EGFR Non-African American 14.2 (>60); Glucose 479 mg/dL (70-100); Potassium 4.1 mmol/L (3.5-5.0); Sodium 134 mmol/L (135-145)
[2020-10-22] MEDS ORDERED: NORMOSOL-R pH 7.4 1000 mL BAG 1,000 ML IV ONE (02:00)
[2020-10-22] MEDS ORDERED: Pantoprazole VIAL 40 MG VIAL IV SCH (02:00)
[2020-10-22] MEDS ORDERED: Lactated Ringers 1000 ml BAG 1,000 ML IV ONE (02:18)
[2020-10-22 02:36] LABS: Glucose Confirmatory 408 mg/dL (70-100)
[2020-10-22 05:52] LABS: Troponin I 0.07 ng/mL (<0.03)
[2020-10-22] MEDS ORDERED: Potassium Chloride IV 20 MEQ in Lactated Ringers 1000 ml BAG 1,000 ML IVPB SCH ×3 (06:00→08:00)
[2020-10-22] MEDS ORDERED: D5W 1000 ml BAG 1,000 ML IV SCH ×4 (06:00→07:44)
[2020-10-22 07:23] LABS: Anion Gap 10 mmol/L (2-11); BUN/Creatinine Ratio 25.7 (8-20); Blood Urea Nitrogen 74 mg/dL (6-24); CO2 Carbon Dioxide 20 mmol/L (22-32); Calcium 9.7 mg/dL (8.6-10.3); Chloride 106 mmol/L (101-111); EGFR African American 19.3 (>60); Glucose 225 mg/dL (70-100); Potassium 4.2 mmol/L (3.5-5.0); Sodium 136 mmol/L (135-145)
[2020-10-22] MEDS ORDERED: Insulin GLARGINE 100 un/ml 10 ml VIAL SUBCUT ONE (07:42)
[2020-10-22] MEDS: Dextrose 50% Syringe 50 ml 25 GM/50 ML SYRINGE IV PUSH PRN (08:13)
[2020-10-22 10:43] LABS: ABS Lymphocytes 0.8 10^3/ul (1.0-4.8); ABS Monocytes 0.6 10^3/ul (0-0.8); ABS Neutrophils 15.4 10^3/ul (1.5-7.7); Hematocrit 32 % (35-47); Hemoglobin 10.8 g/dL (12.0-16.0); Lymphocyte % 4.6 %; Mean Corpuscular HGB Conc 34 g/dL (31-36); Mean Corpuscular Hemoglobin 28 pg (27-31); Mean Corpuscular Volume 83 fL (80-97); Mean Platelet Volume 9.9 fL (7.4-10.4); Platelet Count 172 10^3/uL (150-450); Red Blood Count 3.87 10^6 /uL (3.70-4.87); Red Cell Distribution Width 13 % (10-15); White Blood Count 16.8 10^3/uL (3.5-10.8)
[2020-10-22 11:13] LABS: Troponin I 0.07 ng/mL (<0.03)
[2020-10-22] MEDS: Ondansetron 4 mg VIAL 2 MG/ML 2 ml VIAL IV PRN ×2 (11:27→18:25)
[2020-10-22] MEDS: hydrALAZINE 20 mg/ml 1 ML Vial IV IV SLOW PU PRN (11:27)
[2020-10-22 11:28] LABS: Anion Gap 8 mmol/L (2-11); BUN/Creatinine Ratio 26.4 (8-20); Blood Urea Nitrogen 72 mg/dL (6-24); CO2 Carbon Dioxide 19 mmol/L (22-32); Calcium 9.2 mg/dL (8.6-10.3); Chloride 106 mmol/L (101-111); EGFR African American 20.6 (>60); Glucose 245 mg/dL (70-100); Magnesium 1.6 mg/dL (1.9-2.7); Phosphorus 2.3 mg/dL (2.5-5.0); Potassium 3.9 mmol/L (3.5-5.0); Sodium 133 mmol/L (135-145)
[2020-10-22] MEDS ORDERED: Lactated Ringers 1000 ml BAG 1,000 ML IV SCH (13:00)
[2020-10-22] MEDS: Labetalol IV 5 MG/ML 20 ml VIAL IV PUSH PRN ×2 (14:25→18:14)
[2020-10-22] MEDS: Metoclopramide 5 MG/ML VIAL (10 mg) IV SLOW PU PRN (14:27)
[2020-10-22] MEDS ORDERED: Famotidine IV 10 MG/ML 2 ml VIAL (20 mg) ONE (18:24)
[2020-10-22] MEDS: Famotidine IV 10 MG/ML 2 ml VIAL (20 mg) IV SLOW PU SCH ×2 (18:25→19:12)
[2020-10-22 18:39] LABS: Urine Appearance Turbid; Urine Bilirubin Negative (Negative); Urine Blood 3+ (Negative); Urine Color Amber; Urine Glucose 2+(150 mg/dL) (Negative); Urine Ketones Negative (Negative); Urine Nitrite Negative (Negative); Urine Protein 2+(100 mg/dL) (Negative); Urine Specific Gravity 1.018 (1.010-1.030); Urine Urobilinogen Negative (Negative)
[2020-10-22 18:42] LABS: Urine Bacteria 2+ (Absent); Urine Red Blood Cell 1+(3-5/hpf) (Absent); Urine Squamous Epithelial Cell Present (Absent); Urine White Blood Cell 2+(11-20/hpf) (Absent)
[2020-10-22] MEDS: Enoxaparin 30 MG/0.3 ML SYR SUBCUT SCH (20:30)
[2020-10-22] MEDS: cefTRIAXone 1 gm/50 mL NS BAG 1 GM/50 ML BAG IVPB SCH (20:31)
[2020-10-22 23:39] LABS: Anion Gap 7 mmol/L (2-11); BUN/Creatinine Ratio 25.8 (8-20); Blood Urea Nitrogen 62 mg/dL (6-24); CO2 Carbon Dioxide 21 mmol/L (22-32); Calcium 9.2 mg/dL (8.6-10.3); Chloride 105 mmol/L (101-111); EGFR African American 23.9 (>60); EGFR Non-African American 19.7 (>60); Glucose 237 mg/dL (70-100); Potassium 4.6 mmol/L (3.5-5.0); Sodium 133 mmol/L (135-145)
[2020-10-22 23:43] LABS: Troponin I 0.07 ng/mL (<0.03)
[2020-10-23 04:46] LABS: Hematocrit 31 % (35-47); Hemoglobin 10.4 g/dL (12.0-16.0); Mean Corpuscular HGB Conc 34 g/dL (31-36); Mean Corpuscular Hemoglobin 28 pg (27-31); Mean Corpuscular Volume 83 fL (80-97); Mean Platelet Volume 9.1 fL (7.4-10.4); Platelet Count 152 10^3/uL (150-450); Red Cell Distribution Width 14 % (10-15); White Blood Count 13.5 10^3/uL (3.5-10.8)
[2020-10-23 04:53] LABS: INR 1.04 (0.82-1.09)
[2020-10-23 05:09] LABS: BUN/Creatinine Ratio 25.9 (8-20); Blood Urea Nitrogen 56 mg/dL (6-24); CO2 Carbon Dioxide 20 mmol/L (22-32); Calcium 8.8 mg/dL (8.6-10.3); Chloride 106 mmol/L (101-111); EGFR Non-African American 22.3 (>60); Glucose 170 mg/dL (70-100); Magnesium 1.4 mg/dL (1.9-2.7); Sodium 133 mmol/L (135-145)
[2020-10-23] MEDS ORDERED: Magnesium Sulfate 2 gm BAG 2 GM/50 ML BAG IVPB ONE ×2 (05:09→07:12)
[2020-10-23 05:10] LABS: Anion Gap 7 mmol/L (2-11); Potassium 5.7 mmol/L (3.5-5.0)
[2020-10-23 05:12] LABS: Troponin I 0.05 ng/mL (<0.03)
[2020-10-23] MEDS ORDERED: Lactated Ringers 1000 ml BAG 500 ML IV SCH ×2 (06:00→10:07)
[2020-10-23] MEDS: Famotidine IV 10 MG/ML 2 ml VIAL (20 mg) IV SLOW PU SCH (08:31)
[2020-10-23] MEDS: Ondansetron 4 mg VIAL 2 MG/ML 2 ml VIAL IV PRN ×3 (08:32→18:04)
[2020-10-23] MEDS: Insulin GLARGINE 100 un/ml 10 ml VIAL SUBCUT SCH (08:52)
[2020-10-23] MEDS ORDERED: SODIUM ZIRCONIUM CYCLOSILICATE 10 GM PACKET PO ONE (09:00)
[2020-10-23] MEDS ORDERED: Insulin GLARGINE 100 un/ml 10 ml VIAL SUBCUT SCH (09:00)
[2020-10-23] MEDS: Metoclopramide 5 MG/ML VIAL (10 mg) IV SLOW PU PRN (09:34)
[2020-10-23] MEDS: Mometasone/Formoter 100/5 MDI INH SCH ×2 (10:37→19:57)
[2020-10-23 13:46] LABS: BUN/Creatinine Ratio 24.6 (8-20); Calcium 8.9 mg/dL (8.6-10.3); EGFR Non-African American 23.9 (>60); Potassium 4.4 mmol/L (3.5-5.0)
[2020-10-23] MEDS: Pantoprazole VIAL 40 MG VIAL IV SCH (14:22)
[2020-10-23] MEDS: Enoxaparin 30 MG/0.3 ML SYR SUBCUT SCH (20:04)
[2020-10-23] MEDS: cefTRIAXone 1 gm/50 mL NS BAG 1 GM/50 ML BAG IVPB SCH (20:24)
[2020-10-24 05:35] LABS: Hematocrit 29 % (35-47); Hemoglobin 9.6 g/dL (12.0-16.0); Mean Corpuscular HGB Conc 34 g/dL (31-36); Mean Corpuscular Hemoglobin 28 pg (27-31); Mean Corpuscular Volume 83 fL (80-97); Mean Platelet Volume 8.9 fL (7.4-10.4); Platelet Count 133 10^3/uL (150-450); Red Blood Count 3.42 10^6 /uL (3.70-4.87); Red Cell Distribution Width 14 % (10-15)
[2020-10-24 05:49] LABS: Anion Gap 7 mmol/L (2-11); BUN/Creatinine Ratio 22.6 (8-20); Blood Urea Nitrogen 45 mg/dL (6-24); CO2 Carbon Dioxide 21 mmol/L (22-32); Calcium 8.7 mg/dL (8.6-10.3); Chloride 105 mmol/L (101-111); EGFR African American 29.6 (>60); EGFR Non-African American 24.5 (>60); Glucose 112 mg/dL (70-100); Potassium 3.2 mmol/L (3.5-5.0); Sodium 133 mmol/L (135-145)
[2020-10-24] MEDS: Mometasone/Formoter 100/5 MDI INH SCH ×2 (08:16→19:20)
[2020-10-24] MEDS: Pantoprazole VIAL 40 MG VIAL IV SCH ×2 (08:48→20:12)
[2020-10-24] MEDS: Insulin GLARGINE 100 un/ml 10 ml VIAL SUBCUT SCH (08:50)
[2020-10-24 09:17] LABS: Magnesium 2.5 mg/dL (1.9-2.7)
[2020-10-24 18:29] LABS: Erythrocyte Sed Rate 30 mm/Hr (0-29)
[2020-10-24 19:03] LABS: Ferritin 102.5 ng/mL (11-307)
[2020-10-24 19:28] LABS: % Iron Saturation 10 % (15-55); Iron 24 ug/dL (50-212); Total Iron Binding Capacity 245 mcg/dL (250-450); Transferrin 175 mg/dL (203-362); Unsaturated Iron Binding < 230 ug/dL
[2020-10-24] MEDS: Enoxaparin 30 MG/0.3 ML SYR SUBCUT SCH (20:11)
[2020-10-24] MEDS: cefTRIAXone 1 gm/50 mL NS BAG 1 GM/50 ML BAG IVPB SCH (20:23)
[2020-10-25 05:00] LABS: ABS Monocytes 0.4 10^3/ul (0-0.8); ABS Neutrophils 5.7 10^3/ul (1.5-7.7); Eosinophil % 0.4 %; Hematocrit 30 % (35-47); Hemoglobin 9.9 g/dL (12.0-16.0); Lymphocyte % 14.1 %; Mean Corpuscular HGB Conc 34 g/dL (31-36); Mean Corpuscular Hemoglobin 28 pg (27-31); Mean Corpuscular Volume 84 fL (80-97); Mean Platelet Volume 8.7 fL (7.4-10.4); Platelet Count 145 10^3/uL (150-450); Red Blood Count 3.54 10^6 /uL (3.70-4.87); Red Cell Distribution Width 14 % (10-15); White Blood Count 7.2 10^3/uL (3.5-10.8)
[2020-10-25 05:17] LABS: BUN/Creatinine Ratio 17.3 (8-20); Calcium 8.5 mg/dL (8.6-10.3); EGFR African American 30.2 (>60); EGFR Non-African American 24.9 (>60)
[2020-10-25] MEDS: Pantoprazole VIAL 40 MG VIAL IV SCH ×2 (08:27→21:05)
[2020-10-25] MEDS: Mometasone/Formoter 100/5 MDI INH SCH ×2 (08:57→20:25)
[2020-10-25] MEDS ORDERED: Insulin GLARGINE 100 un/ml 10 ml VIAL SUBCUT SCH (09:00)
[2020-10-25 10:07] LABS: Magnesium 2.1 mg/dL (1.9-2.7)
[2020-10-25] MEDS ORDERED: Iron Sucrose 200 MG in NS 0.9% 100 ml BAG 100 ML IVPB ONE (11:25)
[2020-10-25] MEDS: KCL 20 MEQ/100 ML IVPREMIX 20 MEQ/100 ML BAG IV SCH ×2 (12:37→16:49)
[2020-10-25] MEDS: cefTRIAXone 1 gm/50 mL NS BAG 1 GM/50 ML BAG IVPB SCH (20:59)
[2020-10-25] MEDS: Enoxaparin 30 MG/0.3 ML SYR SUBCUT SCH (21:23)
[2020-10-25] MEDS ORDERED: Calcium Carb (TUMS) 500 mg CHEW TAB PO PRN (22:14)
[2020-10-26 05:48] LABS: ABS Lymphocytes 0.6 10^3/ul (1.0-4.8); ABS Monocytes 0.6 10^3/ul (0-0.8); ABS Neutrophils 7.3 10^3/ul (1.5-7.7); Eosinophil % 0.1 %; Hematocrit 32 % (35-47); Hemoglobin 10.5 g/dL (12.0-16.0); Lymphocyte % 7.1 %; Mean Corpuscular HGB Conc 33 g/dL (31-36); Mean Corpuscular Hemoglobin 28 pg (27-31); Mean Corpuscular Volume 84 fL (80-97); Mean Platelet Volume 8.7 fL (7.4-10.4); Platelet Count 159 10^3/uL (150-450); Red Cell Distribution Width 13 % (10-15); White Blood Count 8.5 10^3/uL (3.5-10.8)
[2020-10-26 06:05] LABS: BUN/Creatinine Ratio 15.1 (8-20); Calcium 8.1 mg/dL (8.6-10.3); EGFR African American 32.2 (>60); EGFR Non-African American 26.6 (>60); Potassium 3.6 mmol/L (3.5-5.0)
[2020-10-26] MEDS: Ondansetron 4 mg VIAL 2 MG/ML 2 ml VIAL IV PRN ×2 (08:31→20:04)
[2020-10-26] MEDS: Pantoprazole VIAL 40 MG VIAL IV SCH ×2 (08:42→21:59)
[2020-10-26] MEDS: Mometasone/Formoter 100/5 MDI INH SCH ×2 (09:15→20:29)
[2020-10-26] MEDS: cefTRIAXone 1 gm/50 mL NS BAG 1 GM/50 ML BAG IVPB SCH (20:08)
[2020-10-26] MEDS ORDERED: NS 0.9% 1000 ml BAG 1,000 ML IV ONE (20:43)
[2020-10-26 21:19] LABS: Hematocrit 33 % (35-47); Hemoglobin 10.7 g/dL (12.0-16.0); Mean Corpuscular HGB Conc 33 g/dL (31-36); Mean Corpuscular Hemoglobin 28 pg (27-31); Mean Corpuscular Volume 86 fL (80-97); Mean Platelet Volume 8.7 fL (7.4-10.4); Platelet Count 166 10^3/uL (150-450); Red Blood Count 3.83 10^6 /uL (3.70-4.87); Red Cell Distribution Width 14 % (10-15); White Blood Count 9.4 10^3/uL (3.5-10.8)
[2020-10-26 21:39] LABS: ABS Lymphocytes 0.7 10^3/ul (1.0-4.8); ABS Monocytes 1.1 10^3/ul (0-0.8); ABS Neutrophils 7.6 10^3/ul (1.5-7.7); Burr Cells 1+; Lymphocyte % 7.8 %
[2020-10-26] MEDS: Enoxaparin 30 MG/0.3 ML SYR SUBCUT SCH (21:58)
[2020-10-27] MEDS: Ondansetron 4 mg VIAL 2 MG/ML 2 ml VIAL IV PRN ×2 (03:26→09:17)
[2020-10-27] MEDS ORDERED: NS 0.9% 1000 ml BAG 1,000 ML IV SCH (04:15)
[2020-10-27 06:55] LABS: Hematocrit 32 % (35-47); Hemoglobin 10.7 g/dL (12.0-16.0); Mean Corpuscular HGB Conc 34 g/dL (31-36); Mean Corpuscular Hemoglobin 28 pg (27-31); Mean Corpuscular Volume 84 fL (80-97); Platelet Count 183 10^3/uL (150-450); Red Blood Count 3.77 10^6 /uL (3.70-4.87); Red Cell Distribution Width 14 % (10-15); White Blood Count 9.3 10^3/uL (3.5-10.8)
[2020-10-27 07:02] LABS: BUN/Creatinine Ratio 15.7 (8-20); Calcium 7.5 mg/dL (8.6-10.3); EGFR Non-African American 21.5 (>60)
[2020-10-27] MEDS ORDERED: Lactated Ringers 1000 ml BAG 1,000 ML IV ONE (07:19)
[2020-10-27 08:21] LABS: ABS Lymphocytes 0.7 10^3/ul (1.0-4.8); ABS Monocytes 0.9 10^3/ul (0-0.8); ABS Neutrophils 7.7 10^3/ul (1.5-7.7); Eosinophil % 0.1 %; Lymphocyte % 7.4 %
[2020-10-27] MEDS: Mometasone/Formoter 100/5 MDI INH SCH ×2 (08:28→19:57)
[2020-10-27] MEDS: Pantoprazole VIAL 40 MG VIAL IV SCH ×2 (09:25→21:34)
[2020-10-27] MEDS ORDERED: Midazolam 10 mg/10 ml VIAL 1 mg/ml 10 ml VIAL (10 mg) ONE (12:44)
[2020-10-27] MEDS ORDERED: fentaNYL 100 mcg/2 ml 50 MCG/ML VIAL ONE (12:44)
[2020-10-27] MEDS: cefTRIAXone 1 gm/50 mL NS BAG 1 GM/50 ML BAG IVPB SCH (20:16)
[2020-10-27] MEDS: Enoxaparin 30 MG/0.3 ML SYR SUBCUT SCH (21:34)
[2020-10-28 06:51] LABS: BUN/Creatinine Ratio 13.7 (8-20); Calcium 7.7 mg/dL (8.6-10.3); EGFR African American 16.3 (>60); EGFR Non-African American 13.4 (>60); Globulin 2.1 g/dL (2-4); Magnesium 1.6 mg/dL (1.9-2.7); Total Bilirubin 0.3 mg/dL (0.2-1.0); Total Protein 4.1 g/dL (6.4-8.9)
[2020-10-28] MEDS: Mometasone/Formoter 100/5 MDI INH SCH ×2 (08:31→19:50)
[2020-10-28] MEDS: Pantoprazole VIAL 40 MG VIAL IV SCH ×2 (09:16→20:51)
[2020-10-28] MEDS ORDERED: Magnesium Sulfate 2 gm BAG 2 GM/50 ML BAG IVPB ONE (14:06)
[2020-10-28] MEDS ORDERED: Lactated Ringers 500 ml BAG 500 ML IV ONE (14:08)
[2020-10-28 17:57] LABS: BUN/Creatinine Ratio 13.1 (8-20); C Reactive Protein 193.51 mg/L (<8.01); Calcium 8.2 mg/dL (8.6-10.3); EGFR African American 14.7 (>60); EGFR Non-African American 12.1 (>60); Potassium 3.8 mmol/L (3.5-5.0)
[2020-10-28] MEDS: Enoxaparin 30 MG/0.3 ML SYR SUBCUT SCH (20:50)
[2020-10-28] MEDS: cefTRIAXone 1 gm/50 mL NS BAG 1 GM/50 ML BAG IVPB SCH (20:51)
[2020-10-28 21:13] LABS: Urine Appearance Cloudy; Urine Bilirubin Negative (Negative); Urine Blood Negative (Negative); Urine Color Amber; Urine Glucose 1+(50 mg/dL) (Negative); Urine Ketones Negative (Negative); Urine Nitrite Negative (Negative); Urine Protein Negative (Negative); Urine Specific Gravity 1.016 (1.010-1.030); Urine Urobilinogen Negative (Negative)
[2020-10-28] MEDS: Lactated Ringers 1000 ml BAG 1,000 ML IV SCH (22:17)
[2020-10-29 05:31] LABS: ABS Eosinophils 0.1 10^3/ul (0-0.6); ABS Lymphocytes 1.5 10^3/ul (1.0-4.8); ABS Monocytes 0.6 10^3/ul (0-0.8); Eosinophil % 0.6 %; Hematocrit 29 % (35-47); Hemoglobin 9.6 g/dL (12.0-16.0); Lymphocyte % 14.4 %; Mean Corpuscular HGB Conc 34 g/dL (31-36); Mean Corpuscular Hemoglobin 28 pg (27-31); Mean Corpuscular Volume 84 fL (80-97); Mean Platelet Volume 8.8 fL (7.4-10.4); Nucleated Red Blood Cells % 0.1; Platelet Count 196 10^3/uL (150-450); Red Blood Count 3.42 10^6 /uL (3.70-4.87); Red Cell Distribution Width 14 % (10-15); White Blood Count 10.1 10^3/uL (3.5-10.8)
[2020-10-29 05:51] LABS: BUN/Creatinine Ratio 13.8 (8-20); Calcium 7.7 mg/dL (8.6-10.3); EGFR African American 14.5 (>60); Potassium 3.6 mmol/L (3.5-5.0)
[2020-10-29] MEDS: Mometasone/Formoter 100/5 MDI INH SCH ×2 (08:26→19:57)
[2020-10-29] MEDS: Lactated Ringers 1000 ml BAG 1,000 ML IV SCH (08:53)
[2020-10-29] MEDS: Pantoprazole VIAL 40 MG VIAL IV SCH ×2 (09:05→20:48)
[2020-10-29] MEDS ORDERED: Lactated Ringers 1000 ml BAG 500 ML IV ONE (15:21)
[2020-10-29] MEDS ORDERED: Lactated Ringers 500 ml BAG 500 ML IV ONE (15:21)
[2020-10-29] MEDS: Enoxaparin 30 MG/0.3 ML SYR SUBCUT SCH (20:48)
[2020-10-29] MEDS: cefTRIAXone 1 gm/50 mL NS BAG 1 GM/50 ML BAG IVPB SCH (20:50)
[2020-10-30] MEDS: Lactated Ringers 1000 ml BAG 1,000 ML IV SCH (05:07)
[2020-10-30 06:34] LABS: Albumin 2.1 g/dL (3.2-5.2); Calcium 7.6 mg/dL (8.6-10.3); Potassium 3.8 mmol/L (3.5-5.0); Total Bilirubin 0.2 mg/dL (0.2-1.0)
[2020-10-30 06:40] LABS: Albumin/Globulin Ratio 1.1 (1-3); BUN/Creatinine Ratio 13.8 (8-20); EGFR African American 13.9 (>60); EGFR Non-African American 11.5 (>60); Total Protein 4.1 g/dL (6.4-8.9)
[2020-10-30 08:17] LABS: ABS Eosinophils 0.1 10^3/ul (0-0.6); ABS Lymphocytes 1.4 10^3/ul (1.0-4.8); ABS Monocytes 0.5 10^3/ul (0-0.8); ABS Neutrophils 6.2 10^3/ul (1.5-7.7); Eosinophil % 0.7 %; Hematocrit 32 % (35-47); Hemoglobin 10.5 g/dL (12.0-16.0); Lymphocyte % 17.4 %; Mean Corpuscular HGB Conc 33 g/dL (31-36); Mean Corpuscular Hemoglobin 28 pg (27-31); Mean Corpuscular Volume 86 fL (80-97); Mean Platelet Volume 8.3 fL (7.4-10.4); Nucleated Red Blood Cells % 0.1; Platelet Count 253 10^3/uL (150-450); Red Blood Count 3.75 10^6 /uL (3.70-4.87); Red Cell Distribution Width 15 % (10-15); White Blood Count 8.2 10^3/uL (3.5-10.8)
[2020-10-30] MEDS: Mometasone/Formoter 100/5 MDI INH SCH ×2 (08:28→19:59)
[2020-10-30] MEDS ORDERED: Lactated Ringers 500 ml BAG 500 ML IV ONE (08:47)
[2020-10-30 08:48] LABS: Albumin 2.1 g/dL (3.4-4.7); Albumin/Globulin Ratio 0.85; Gamma Globulin 0.4 g/dL (0.6-1.6); Total Protein(PEP) 4.5 g/dL (6.3 - 7.9)
[2020-10-30] MEDS: Pantoprazole VIAL 40 MG VIAL IV SCH ×2 (08:48→22:45)
[2020-10-30] MEDS: Sodium Bicarb 650 mg (ANTACID) TAB PO SCH ×2 (09:56→22:44)
[2020-10-30] MEDS ORDERED: Sodium Bicarbonate 8.4% SYR 50 ml SYRINGE IV ONE (14:10)
[2020-10-30] MEDS: Ondansetron 4 mg VIAL 2 MG/ML 2 ml VIAL IV PRN (14:16)
[2020-10-30] MEDS: Sodium Bicarb 8.4% Vial 50 ML 150 MEQ in D5W 1000 ml BAG 850 ML IV SCH (15:56)
[2020-10-30 18:03] LABS: Urine Creatinine Concentration 177.05 mg/dL
[2020-10-30] MEDS: Enoxaparin 30 MG/0.3 ML SYR SUBCUT SCH (22:42)
[2020-10-31 07:40] LABS: BUN/Creatinine Ratio 14.6 (8-20); Calcium 7.4 mg/dL (8.6-10.3); EGFR African American 14.8 (>60); EGFR Non-African American 12.2 (>60); Potassium 3.2 mmol/L (3.5-5.0)
[2020-10-31] MEDS: Mometasone/Formoter 100/5 MDI INH SCH ×2 (07:53→19:49)
[2020-10-31] MEDS: Sodium Bicarb 650 mg (ANTACID) TAB PO SCH ×2 (08:03→21:45)
[2020-10-31] MEDS: Pantoprazole VIAL 40 MG VIAL IV SCH ×2 (08:04→21:44)
[2020-10-31] MEDS ORDERED: Potassium Chlor 20 meq TAB.ER PO ONE ×2 (09:46→13:00)
[2020-10-31] MEDS: Sodium Bicarb 8.4% Vial 50 ML 150 MEQ in D5W 1000 ml BAG 850 ML IV SCH (09:49)
[2020-10-31] MEDS: Ondansetron 4 mg VIAL 2 MG/ML 2 ml VIAL IV PRN (12:28)
[2020-10-31] MEDS ORDERED: Morphine 2 MG/ML SYRINGE IV ONE (15:12)
[2020-10-31] MEDS: Enoxaparin 30 MG/0.3 ML SYR SUBCUT SCH (21:44)
[2020-10-31] MEDS: Lactated Ringers 1000 ml BAG 1,000 ML IV SCH (23:36)
[2020-11-01 06:14] LABS: Calcium 7.3 mg/dL (8.6-10.3); Magnesium 1.9 mg/dL (1.9-2.7)
[2020-11-01 06:20] LABS: BUN/Creatinine Ratio 14.3 (8-20); C Reactive Protein 32.18 mg/L (<8.01); EGFR African American 15.4 (>60); EGFR Non-African American 12.8 (>60)
[2020-11-01] MEDS: Mometasone/Formoter 100/5 MDI INH SCH ×2 (07:27→20:02)
[2020-11-01 08:12] LABS: ABS Lymphocytes 2.1 10^3/ul (1.0-4.8); ABS Monocytes 0.5 10^3/ul (0-0.8); ABS Neutrophils 4.2 10^3/ul (1.5-7.7); Eosinophil % 0.6 %; Hematocrit 33 % (35-47); Hemoglobin 10.4 g/dL (12.0-16.0); Lymphocyte % 30.1 %; Mean Corpuscular HGB Conc 32 g/dL (31-36); Mean Corpuscular Hemoglobin 28 pg (27-31); Mean Corpuscular Volume 87 fL (80-97); Mean Platelet Volume 8.3 fL (7.4-10.4); Platelet Count 246 10^3/uL (150-450); Red Blood Count 3.75 10^6 /uL (3.70-4.87); Red Cell Distribution Width 15 % (10-15); White Blood Count 6.8 10^3/uL (3.5-10.8)
[2020-11-01] MEDS: Sodium Bicarb 650 mg (ANTACID) TAB PO SCH ×3 (09:35→22:37)
[2020-11-01] MEDS: Pantoprazole VIAL 40 MG VIAL IV SCH ×2 (09:35→22:38)
[2020-11-01] MEDS ORDERED: Sodium Bicarb 650 mg (ANTACID) TAB PO ONE (09:49)
[2020-11-01] MEDS: Lactated Ringers 1000 ml BAG 1,000 ML IV SCH (09:58)
[2020-11-01] MEDS: Enoxaparin 30 MG/0.3 ML SYR SUBCUT SCH (22:38)
[2020-11-02 05:32] LABS: BUN/Creatinine Ratio 14.4 (8-20); Calcium 7.7 mg/dL (8.6-10.3); EGFR Non-African American 11.5 (>60); Magnesium 1.8 mg/dL (1.9-2.7); Potassium 3.8 mmol/L (3.5-5.0)
[2020-11-02] MEDS: Sodium Bicarb 650 mg (ANTACID) TAB PO SCH ×3 (08:14→21:50)
[2020-11-02] MEDS: Pantoprazole VIAL 40 MG VIAL IV SCH ×2 (08:14→21:51)
[2020-11-02] MEDS: Mometasone/Formoter 100/5 MDI INH SCH ×2 (08:25→20:30)
[2020-11-02] MEDS ORDERED: Potassium Chlor 20 meq TAB.ER PO ONE (09:09)
[2020-11-02] MEDS ORDERED: Magnesium Sulfate 2 gm BAG 2 GM/50 ML BAG IVPB ONE (09:09)
[2020-11-02] MEDS: Enoxaparin 30 MG/0.3 ML SYR SUBCUT SCH (21:51)
[2020-11-03 06:00] LABS: ABS Lymphocytes 1.9 10^3/ul (1.0-4.8); ABS Monocytes 0.5 10^3/ul (0-0.8); ABS Neutrophils 5.4 10^3/ul (1.5-7.7); Eosinophil % 0.5 %; Hematocrit 31 % (35-47); Mean Corpuscular HGB Conc 33 g/dL (31-36); Mean Corpuscular Hemoglobin 28 pg (27-31); Mean Corpuscular Volume 86 fL (80-97); Platelet Count 274 10^3/uL (150-450); Red Cell Distribution Width 15 % (10-15); White Blood Count 7.8 10^3/uL (3.5-10.8)
[2020-11-03 06:13] LABS: BUN/Creatinine Ratio 14.9 (8-20); Calcium 7.5 mg/dL (8.6-10.3); EGFR African American 14.2 (>60); EGFR Non-African American 11.7 (>60); Magnesium 2.2 mg/dL (1.9-2.7)
[2020-11-03] MEDS: Mometasone/Formoter 100/5 MDI INH SCH ×2 (07:15→19:13)
[2020-11-03] MEDS: Sodium Bicarb 650 mg (ANTACID) TAB PO SCH ×3 (08:11→21:22)
[2020-11-03] MEDS: Pantoprazole VIAL 40 MG VIAL IV SCH ×2 (08:13→21:21)
[2020-11-03] MEDS: Enoxaparin 30 MG/0.3 ML SYR SUBCUT SCH (21:23)
[2020-11-04 06:16] LABS: BUN/Creatinine Ratio 16.3 (8-20); Calcium 7.8 mg/dL (8.6-10.3); EGFR African American 16.1 (>60); EGFR Non-African American 13.3 (>60); Magnesium 2.1 mg/dL (1.9-2.7); Potassium 3.5 mmol/L (3.5-5.0)
[2020-11-04] MEDS: Mometasone/Formoter 100/5 MDI INH SCH ×2 (08:24→19:47)
[2020-11-04] MEDS: Pantoprazole VIAL 40 MG VIAL IV SCH ×2 (08:28→20:52)
[2020-11-04] MEDS: Sodium Bicarb 650 mg (ANTACID) TAB PO SCH ×3 (08:28→20:51)
[2020-11-04] MEDS: Enoxaparin 30 MG/0.3 ML SYR SUBCUT SCH (20:50)
[2020-11-05 07:39] LABS: BUN/Creatinine Ratio 17.7 (8-20); Calcium 7.9 mg/dL (8.6-10.3); EGFR African American 17.8 (>60); EGFR Non-African American 14.7 (>60); Magnesium 2.1 mg/dL (1.9-2.7); Potassium 3.3 mmol/L (3.5-5.0)
[2020-11-05] MEDS: Mometasone/Formoter 100/5 MDI INH SCH ×2 (07:59→19:58)
[2020-11-05] MEDS ORDERED: Potassium Chlor 20 meq TAB.ER PO ONE (08:08)
[2020-11-05] MEDS: Sodium Bicarb 650 mg (ANTACID) TAB PO SCH ×3 (10:02→20:57)
[2020-11-05] MEDS: Pantoprazole VIAL 40 MG VIAL IV SCH (10:04)
[2020-11-05 10:46] LABS: Albumin/Globulin Ratio 0.22; Protein,Total, Random Urine 118 mg/dL
[2020-11-05] MEDS: Dextrose 50% Syringe 50 ml 25 GM/50 ML SYRINGE ONE ×2 (17:14→17:16)
[2020-11-05] MEDS: Dextrose 50% Syringe 50 ml 25 GM/50 ML SYRINGE IV PUSH PRN (17:16)
[2020-11-05] MEDS: Enoxaparin 30 MG/0.3 ML SYR SUBCUT SCH (20:59)
[2020-11-06 05:01] LABS: BUN/Creatinine Ratio 19.5 (8-20); Calcium 7.7 mg/dL (8.6-10.3); EGFR African American 20.7 (>60); EGFR Non-African American 17.1 (>60); Potassium 3.2 mmol/L (3.5-5.0)
[2020-11-06] MEDS: Mometasone/Formoter 100/5 MDI INH SCH ×2 (08:07→19:42)
[2020-11-06] MEDS: Potassium Chlor 20 meq TAB.ER PO SCH ×3 (08:57→16:19)
[2020-11-06] MEDS: Sodium Bicarb 650 mg (ANTACID) TAB PO SCH ×2 (08:59→20:41)
[2020-11-06] MEDS: Enoxaparin 30 MG/0.3 ML SYR SUBCUT SCH (20:40)
[2020-11-07 05:25] LABS: ABS Lymphocytes 1.4 10^3/ul (1.0-4.8); ABS Monocytes 0.5 10^3/ul (0-0.8); Eosinophil % 0.5 %; Hematocrit 31 % (35-47); Hemoglobin 10.1 g/dL (12.0-16.0); Lymphocyte % 19.8 %; Mean Corpuscular HGB Conc 33 g/dL (31-36); Mean Corpuscular Hemoglobin 28 pg (27-31); Mean Corpuscular Volume 86 fL (80-97); Mean Platelet Volume 7.7 fL (7.4-10.4); Platelet Count 246 10^3/uL (150-450); Red Blood Count 3.57 10^6 /uL (3.70-4.87); Red Cell Distribution Width 15 % (10-15); White Blood Count 6.9 10^3/uL (3.5-10.8)
[2020-11-07 05:44] LABS: BUN/Creatinine Ratio 20.1 (8-20); Calcium 7.6 mg/dL (8.6-10.3); EGFR African American 21.9 (>60); EGFR Non-African American 18.1 (>60); Potassium 3.2 mmol/L (3.5-5.0)
[2020-11-07 07:13] LABS: Magnesium 1.9 mg/dL (1.9-2.7)
[2020-11-07] MEDS: Mometasone/Formoter 100/5 MDI INH SCH (08:23)
[2020-11-07] MEDS: Sodium Bicarb 650 mg (ANTACID) TAB PO SCH (08:31)
[2020-11-07] MEDS ORDERED: Potassium Chlor 20 meq TAB.ER PO ONE (09:03)
[2020-11-07 11:20] VITALS: BP 110/60
== END 2020-11-07 15:35 | disposition home or self-care (01) | DRG 871 ==
LOC: ED 17:24 → ICU 20:54 → MEDTELE 10-23 19:39
PROVIDERS: ADMIT Internal Medicine; ATTEND Student in an Organized Health Care Education/Training Program

== ENCOUNTER 2020-11-16 09:18 | Inpatient (IN) ==
[2020-11-16] MEDS ORDERED: NS 0.9% 1000 ml BAG 1,000 ML IV ONE (09:28)
[2020-11-16] MEDS ORDERED: Morphine 4 MG/ML VIAL (1 ml) IV ONE (09:36)
[2020-11-16] MEDS ORDERED: Ondansetron 4 mg VIAL 2 MG/ML 2 ml VIAL IV ONE (09:36)
[2020-11-16 10:02] LABS: ABS Lymphocytes 0.6 10^3/ul (1.0-4.8); ABS Monocytes 0.4 10^3/ul (0-0.8); Eosinophil % 0.7 %; Hematocrit 30 % (35-47); Hemoglobin 9.7 g/dL (12.0-16.0); Lymphocyte % 9.5 %; Mean Corpuscular HGB Conc 33 g/dL (31-36); Mean Corpuscular Hemoglobin 28 pg (27-31); Mean Corpuscular Volume 86 fL (80-97); Mean Platelet Volume 7.3 fL (7.4-10.4); Platelet Count 331 10^3/uL (150-450); Red Blood Count 3.48 10^6 /uL (3.70-4.87); Red Cell Distribution Width 15 % (10-15); White Blood Count 6.1 10^3/uL (3.5-10.8)
[2020-11-16 10:19] LABS: Albumin 2.6 g/dL (3.2-5.2); Albumin/Globulin Ratio 1.1 (1-3); Calcium 8.2 mg/dL (8.6-10.3); EGFR African American 35.1 (>60); Globulin 2.3 g/dL (2-4); Magnesium 1.4 mg/dL (1.9-2.7); Total Bilirubin 0.3 mg/dL (0.2-1.0); Total Protein 4.9 g/dL (6.4-8.9)
[2020-11-16 10:43] LABS: Potassium 2.4 mmol/L (3.5-5.0)
[2020-11-16] MEDS ORDERED: Magnesium Sulf 4 GM/100 ML IV 4,000 MG/100 ML BAG IVPB ONE (11:01)
[2020-11-16] MEDS: KCL 20 MEQ/100 ML IVPREMIX 20 MEQ/100 ML BAG IV SCH ×3 (11:04→17:11)
[2020-11-16] MEDS ORDERED: cefTRIAXone 1 gm/50 mL NS BAG 1 GM/50 ML BAG IV ONE (12:40)
[2020-11-16] MEDS ORDERED: Magnesium Hydroxide LIQ 30 ML UDC PO PRN (13:16)
[2020-11-16] MEDS ORDERED: Ondansetron 4 mg VIAL 2 MG/ML 2 ml VIAL IV PRN (13:16)
[2020-11-16] MEDS ORDERED: Dextrose 50% Syringe 50 ml 25 GM/50 ML SYRINGE IV PUSH PRN (13:42)
[2020-11-16] MEDS: Heparin 5000 UNITS/ML 1 mL VIAL SUBCUT SCH ×2 (15:26→20:13)
[2020-11-16] MEDS: Furosemide 40 mg/4 ml IV VIAL IV SCH (17:11)
[2020-11-16 18:09] LABS: CO2 Carbon Dioxide 21 mmol/L (22-32); Calcium 8.2 mg/dL (8.6-10.3); Chloride 102 mmol/L (101-111); Sodium 133 mmol/L (135-145)
[2020-11-16 18:15] LABS: BUN/Creatinine Ratio 24.7 (8-20); Blood Urea Nitrogen 40 mg/dL (6-24); EGFR African American 37.6 (>60); EGFR Non-African American 31.1 (>60); Glucose 164 mg/dL (70-100)
[2020-11-16 18:43] LABS: Anion Gap 10 mmol/L (2-11)
[2020-11-16] MEDS: Mometasone/Formoter 100/5 MDI INH SCH (19:05)
[2020-11-17] MEDS: Heparin 5000 UNITS/ML 1 mL VIAL SUBCUT SCH ×3 (05:02→21:19)
[2020-11-17 05:36] LABS: ABS Eosinophils 0.1 10^3/ul (0-0.6); ABS Lymphocytes 0.7 10^3/ul (1.0-4.8); ABS Monocytes 0.5 10^3/ul (0-0.8); ABS Neutrophils 4.5 10^3/ul (1.5-7.7); Eosinophil % 1.7 %; Hematocrit 30 % (35-47); Hemoglobin 9.2 g/dL (12.0-16.0); Lymphocyte % 11.7 %; Mean Corpuscular HGB Conc 30 g/dL (31-36); Mean Corpuscular Hemoglobin 28 pg (27-31); Mean Corpuscular Volume 92 fL (80-97); Mean Platelet Volume 7.2 fL (7.4-10.4); Platelet Count 301 10^3/uL (150-450); Red Blood Count 3.31 10^6 /uL (3.70-4.87); Red Cell Distribution Width 17 % (10-15); White Blood Count 5.9 10^3/uL (3.5-10.8)
[2020-11-17 05:45] LABS: Calcium 7.8 mg/dL (8.6-10.3)
[2020-11-17 05:51] LABS: BUN/Creatinine Ratio 23.7 (8-20); EGFR African American 39.3 (>60); EGFR Non-African American 32.4 (>60)
[2020-11-17 05:53] LABS: Potassium 2.6 mmol/L (3.5-5.0)
[2020-11-17 06:13] LABS: Albumin 2.4 g/dL (3.2-5.2); Calcium 8.1 mg/dL (8.6-10.3); Total Bilirubin 0.2 mg/dL (0.2-1.0)
[2020-11-17 06:17] LABS: Potassium 2.7 mmol/L (3.5-5.0)
[2020-11-17 06:19] LABS: Albumin/Globulin Ratio 1.3 (1-3); BUN/Creatinine Ratio 23.7 (8-20); EGFR African American 39.3 (>60); EGFR Non-African American 32.4 (>60); Globulin 1.9 g/dL (2-4); Total Protein 4.3 g/dL (6.4-8.9)
[2020-11-17] MEDS: Mometasone/Formoter 100/5 MDI INH SCH ×2 (07:24→19:16)
[2020-11-17] MEDS ORDERED: KCL 20 MEQ/100 ML IVPREMIX 20 MEQ/100 ML BAG IV SCH (08:00)
[2020-11-17] MEDS: Furosemide 40 mg/4 ml IV VIAL IV SCH ×2 (08:06→17:38)
[2020-11-17] MEDS: KCL 10 MEQ/50 ML IVPREMIX 10 MEQ/50 ML BAG IV SCH ×2 (08:07→11:28)
[2020-11-17] MEDS: KCL 20 MEQ/100 ML IVPREMIX 20 MEQ/100 ML BAG IV SCH ×3 (10:49→17:46)
[2020-11-17] MEDS ORDERED: Potassium Chlor 20 meq TAB.ER PO ONE (11:30)
[2020-11-17 14:33] LABS: Calcium 7.9 mg/dL (8.6-10.3); Potassium 2.8 mmol/L (3.5-5.0)
[2020-11-17 14:38] LABS: BUN/Creatinine Ratio 23.2 (8-20); EGFR African American 39.5 (>60); EGFR Non-African American 32.7 (>60)
[2020-11-17 19:44] LABS: Calcium 8.2 mg/dL (8.6-10.3); EGFR African American 38.4 (>60); EGFR Non-African American 31.7 (>60); Potassium 3.1 mmol/L (3.5-5.0)
[2020-11-17 20:39] LABS: Urine Appearance Clear; Urine Bilirubin Negative (Negative); Urine Blood 1+ (Negative); Urine Color Colorless; Urine Glucose Negative (Negative); Urine Ketones Negative (Negative); Urine Nitrite Negative (Negative); Urine Protein Negative (Negative); Urine Specific Gravity 1.004 (1.002-1.030); Urine Urobilinogen Negative (Negative)
[2020-11-17 21:06] LABS: Urine Bacteria 1+ (Absent); Urine Red Blood Cell Trace(0-2/hpf) (Absent); Urine Squamous Epithelial Cell Present (Absent); Urine White Blood Cell 3+(>20/hpf) (Absent)
[2020-11-18] MEDS ORDERED: Potassium Chlor 20 meq TAB.ER PO ONE ×3 (03:02→06:04)
[2020-11-18 03:27] LABS: Magnesium 1.9 mg/dL (1.9-2.7)
[2020-11-18 05:55] LABS: BUN/Creatinine Ratio 21.6 (8-20); Calcium 7.7 mg/dL (8.6-10.3); EGFR African American 40.1 (>60); EGFR Non-African American 33.2 (>60); Magnesium 1.7 mg/dL (1.9-2.7); Potassium 3.2 mmol/L (3.5-5.0)
[2020-11-18] MEDS ORDERED: Magnesium Sulfate IV 3 GM in NS 0.9% 100 ml BAG 100 ML IVPB ONE (06:02)
[2020-11-18] MEDS: Heparin 5000 UNITS/ML 1 mL VIAL SUBCUT SCH ×3 (06:43→20:27)
[2020-11-18] MEDS: Mometasone/Formoter 100/5 MDI INH SCH ×2 (07:29→19:49)
[2020-11-18] MEDS: Furosemide 40 mg/4 ml IV VIAL IV SCH ×2 (08:51→17:51)
[2020-11-18 12:51] LABS: ABS Eosinophils 0.1 10^3/ul (0-0.6); ABS Lymphocytes 0.8 10^3/ul (1.0-4.8); ABS Monocytes 0.4 10^3/ul (0-0.8); ABS Neutrophils 4.9 10^3/ul (1.5-7.7); Eosinophil % 1.5 %; Hematocrit 34 % (35-47); Hemoglobin 11.2 g/dL (12.0-16.0); Lymphocyte % 12.8 %; Mean Corpuscular HGB Conc 33 g/dL (31-36); Mean Corpuscular Hemoglobin 28 pg (27-31); Mean Corpuscular Volume 85 fL (80-97); Mean Platelet Volume 7.4 fL (7.4-10.4); Platelet Count 346 10^3/uL (150-450); Red Cell Distribution Width 16 % (10-15); White Blood Count 6.2 10^3/uL (3.5-10.8)
[2020-11-18 13:01] LABS: Activated Partial Thrombo Time 33.2 seconds (26.0-38.0); INR 0.97 (0.82-1.09)
[2020-11-18 16:18] LABS: Hepatitis C Antibody Negative (Negative)
[2020-11-19] MEDS: Heparin 5000 UNITS/ML 1 mL VIAL SUBCUT SCH ×3 (05:44→21:19)
[2020-11-19 08:01] LABS: ABS Eosinophils 0.1 10^3/ul (0-0.6); ABS Lymphocytes 0.7 10^3/ul (1.0-4.8); ABS Monocytes 0.4 10^3/ul (0-0.8); ABS Neutrophils 4.6 10^3/ul (1.5-7.7); Eosinophil % 1.2 %; Hematocrit 30 % (35-47); Hemoglobin 10.1 g/dL (12.0-16.0); Lymphocyte % 11.5 %; Mean Corpuscular HGB Conc 33 g/dL (31-36); Mean Corpuscular Hemoglobin 28 pg (27-31); Mean Corpuscular Volume 85 fL (80-97); Mean Platelet Volume 7.5 fL (7.4-10.4); Platelet Count 333 10^3/uL (150-450); Red Blood Count 3.55 10^6 /uL (3.70-4.87); Red Cell Distribution Width 16 % (10-15); White Blood Count 5.8 10^3/uL (3.5-10.8)
[2020-11-19 08:15] LABS: BUN/Creatinine Ratio 18.4 (8-20); C Reactive Protein 25.25 mg/L (<8.01); Calcium 8.5 mg/dL (8.6-10.3); EGFR African American 38.7 (>60); Potassium 3.1 mmol/L (3.5-5.0)
[2020-11-19] MEDS: Mometasone/Formoter 100/5 MDI INH SCH ×2 (09:09→19:34)
[2020-11-19] MEDS: Furosemide 40 mg/4 ml IV VIAL IV SCH ×2 (09:12→16:52)
[2020-11-19] MEDS: Potassium Chlor 20 meq TAB.ER PO SCH ×2 (09:16→21:19)
[2020-11-19] MEDS ORDERED: cefTRIAXone 1 gm/50 mL NS BAG 1 GM/50 ML BAG IVPB SCH (17:00)
[2020-11-20 05:18] LABS: ABS Basophils 0.1 10^3/ul (0-0.2); ABS Eosinophils 0.1 10^3/ul (0-0.6); ABS Lymphocytes 1.1 10^3/ul (1.0-4.8); ABS Monocytes 0.6 10^3/ul (0-0.8); ABS Neutrophils 3.9 10^3/ul (1.5-7.7); Eosinophil % 1.7 %; Hematocrit 28 % (35-47); Hemoglobin 9.4 g/dL (12.0-16.0); Mean Corpuscular HGB Conc 34 g/dL (31-36); Mean Corpuscular Hemoglobin 28 pg (27-31); Mean Corpuscular Volume 85 fL (80-97); Mean Platelet Volume 7.6 fL (7.4-10.4); Platelet Count 334 10^3/uL (150-450); Red Blood Count 3.32 10^6 /uL (3.70-4.87); Red Cell Distribution Width 16 % (10-15); White Blood Count 5.7 10^3/uL (3.5-10.8)
[2020-11-20 05:36] LABS: Albumin 2.5 g/dL (3.2-5.2); Albumin/Globulin Ratio 1.1 (1-3); BUN/Creatinine Ratio 17.5 (8-20); Calcium 8.4 mg/dL (8.6-10.3); EGFR African American 38.1 (>60); EGFR Non-African American 31.5 (>60); Globulin 2.3 g/dL (2-4); Magnesium 1.7 mg/dL (1.9-2.7); Potassium 3.2 mmol/L (3.5-5.0); Total Bilirubin 0.3 mg/dL (0.2-1.0); Total Protein 4.8 g/dL (6.4-8.9)
[2020-11-20] MEDS: Heparin 5000 UNITS/ML 1 mL VIAL SUBCUT SCH ×3 (05:42→22:02)
[2020-11-20] MEDS ORDERED: KCL 20 MEQ/100 ML IVPREMIX 20 MEQ/100 ML BAG IV ONE (07:43)
[2020-11-20] MEDS: Mometasone/Formoter 100/5 MDI INH SCH ×2 (07:57→19:27)
[2020-11-20] MEDS ORDERED: Magnesium Sulfate IV 3 GM in NS 0.9% 100 ml BAG 100 ML IVPB ONE (08:00)
[2020-11-20] MEDS: Potassium Chlor 20 meq TAB.ER PO SCH ×4 (09:02→22:01)
[2020-11-20] MEDS: Furosemide 40 mg/4 ml IV VIAL IV SCH ×2 (09:02→18:33)
[2020-11-20] MEDS ORDERED: Ciprofloxacin 400mg IVPREMIX 400 MG/200 ML BAG IVPB SCH (13:00)
[2020-11-20] MEDS: metroNIDAZOLE IV 500 MG/100ML 500 MG/100 ML BAG IVPB SCH ×2 (15:29→20:06)
[2020-11-21] MEDS: metroNIDAZOLE IV 500 MG/100ML 500 MG/100 ML BAG IVPB SCH ×3 (05:49→22:00)
[2020-11-21] MEDS: Heparin 5000 UNITS/ML 1 mL VIAL SUBCUT SCH ×3 (05:53→22:13)
[2020-11-21] MEDS ORDERED: Buffered Lidocaine 1% SYRIN 1 ml INTRADERM ONE ×2 (06:23→08:40)
[2020-11-21] MEDS ORDERED: Ciprofloxacin 400mg IVPREMIX 400 MG/200 ML BAG IVPB SCH (06:30)
[2020-11-21 06:33] LABS: ABS Eosinophils 0.1 10^3/ul (0-0.6); ABS Lymphocytes 0.9 10^3/ul (1.0-4.8); ABS Monocytes 0.5 10^3/ul (0-0.8); Eosinophil % 1.7 %; Hematocrit 27 % (35-47); Hemoglobin 8.9 g/dL (12.0-16.0); Lymphocyte % 16.8 %; Mean Corpuscular HGB Conc 33 g/dL (31-36); Mean Corpuscular Hemoglobin 28 pg (27-31); Mean Corpuscular Volume 85 fL (80-97); Mean Platelet Volume 7.4 fL (7.4-10.4); Platelet Count 329 10^3/uL (150-450); Red Blood Count 3.16 10^6 /uL (3.70-4.87); Red Cell Distribution Width 16 % (10-15); White Blood Count 5.6 10^3/uL (3.5-10.8)
[2020-11-21 06:52] LABS: BUN/Creatinine Ratio 15.2 (8-20); Calcium 8.3 mg/dL (8.6-10.3); EGFR African American 36.8 (>60); EGFR Non-African American 30.4 (>60); Magnesium 1.9 mg/dL (1.9-2.7); Potassium 3.1 mmol/L (3.5-5.0)
[2020-11-21] MEDS: Mometasone/Formoter 100/5 MDI INH SCH ×2 (08:27→20:16)
[2020-11-21] MEDS: Potassium Chlor 20 meq TAB.ER PO SCH ×3 (09:15→22:11)
[2020-11-21] MEDS: Furosemide 40 mg/4 ml IV VIAL IV SCH ×2 (09:16→18:05)
[2020-11-21] MEDS: Levofloxacin 750 MG IVPREMIX 750 MG/150 ML BAG IVPB SCH (18:08)
[2020-11-22] MEDS: Heparin 5000 UNITS/ML 1 mL VIAL SUBCUT SCH ×3 (05:50→21:16)
[2020-11-22] MEDS: metroNIDAZOLE IV 500 MG/100ML 500 MG/100 ML BAG IVPB SCH ×3 (05:50→21:16)
[2020-11-22 06:13] LABS: ABS Eosinophils 0.1 10^3/ul (0-0.6); ABS Lymphocytes 0.7 10^3/ul (1.0-4.8); ABS Monocytes 0.6 10^3/ul (0-0.8); ABS Neutrophils 4.2 10^3/ul (1.5-7.7); Eosinophil % 1.2 %; Hematocrit 25 % (35-47); Hemoglobin 8.2 g/dL (12.0-16.0); Lymphocyte % 12.8 %; Mean Corpuscular HGB Conc 33 g/dL (31-36); Mean Corpuscular Hemoglobin 28 pg (27-31); Mean Corpuscular Volume 85 fL (80-97); Mean Platelet Volume 7.8 fL (7.4-10.4); Platelet Count 303 10^3/uL (150-450); Red Blood Count 2.96 10^6 /uL (3.70-4.87); Red Cell Distribution Width 16 % (10-15); White Blood Count 5.6 10^3/uL (3.5-10.8)
[2020-11-22 06:33] LABS: Albumin 2.5 g/dL (3.2-5.2); Albumin/Globulin Ratio 1.2 (1-3); BUN/Creatinine Ratio 14.6 (8-20); C Reactive Protein 20.54 mg/L (<8.01); Calcium 8.3 mg/dL (8.6-10.3); EGFR African American 35.3 (>60); EGFR Non-African American 29.2 (>60); Globulin 2.1 g/dL (2-4); Magnesium 1.5 mg/dL (1.9-2.7); Potassium 3.3 mmol/L (3.5-5.0); Total Bilirubin 0.3 mg/dL (0.2-1.0); Total Protein 4.6 g/dL (6.4-8.9)
[2020-11-22] MEDS ORDERED: Magnesium Sulf 4 GM/100 ML IV 4,000 MG/100 ML BAG IVPB ONE (06:58)
[2020-11-22] MEDS ORDERED: HYDROmorphone 1 MG/1 ML SYRINGE IV SLOW PU PRN (08:32)
[2020-11-22] MEDS: Furosemide 40 mg/4 ml IV VIAL IV SCH ×2 (08:56→16:25)
[2020-11-22] MEDS ORDERED: Prochlorperazine 5 mg/ml 2 ml VIAL (10 mg) ONE (08:59)
[2020-11-22] MEDS ORDERED: Prochlorperazine 5 mg/ml 2 ml VIAL (10 mg) IV PRN (09:02)
[2020-11-22] MEDS: KCL 10 MEQ/50 ML IVPREMIX 10 MEQ/50 ML BAG IV SCH ×3 (09:36→13:25)
[2020-11-22] MEDS: Mometasone/Formoter 100/5 MDI INH SCH ×2 (14:42→20:19)
[2020-11-22] MEDS: Prochlorperazine 5 mg/ml 2 ml VIAL (10 mg) IV PRN (16:25)
[2020-11-23] MEDS: metroNIDAZOLE IV 500 MG/100ML 500 MG/100 ML BAG IVPB SCH ×3 (05:16→21:27)
[2020-11-23] MEDS: Heparin 5000 UNITS/ML 1 mL VIAL SUBCUT SCH ×3 (05:18→21:37)
[2020-11-23 06:13] LABS: ABS Eosinophils 0.1 10^3/ul (0-0.6); ABS Monocytes 0.6 10^3/ul (0-0.8); ABS Neutrophils 3.5 10^3/ul (1.5-7.7); Eosinophil % 1.5 %; Hematocrit 25 % (35-47); Hemoglobin 8.3 g/dL (12.0-16.0); Lymphocyte % 18.5 %; Mean Corpuscular HGB Conc 33 g/dL (31-36); Mean Corpuscular Hemoglobin 28 pg (27-31); Mean Corpuscular Volume 85 fL (80-97); Mean Platelet Volume 7.7 fL (7.4-10.4); Platelet Count 313 10^3/uL (150-450); Red Blood Count 2.97 10^6 /uL (3.70-4.87); Red Cell Distribution Width 16 % (10-15); White Blood Count 5.1 10^3/uL (3.5-10.8)
[2020-11-23 06:22] LABS: BUN/Creatinine Ratio 13.8 (8-20); Blood Urea Nitrogen 26 mg/dL (6-24); CO2 Carbon Dioxide 25 mmol/L (22-32); Calcium 8.4 mg/dL (8.6-10.3); Chloride 98 mmol/L (101-111); EGFR African American 31.7 (>60); EGFR Non-African American 26.2 (>60); Glucose 238 mg/dL (70-100); Magnesium 2.1 mg/dL (1.9-2.7); Sodium 132 mmol/L (135-145)
[2020-11-23 06:44] LABS: Anion Gap 9 mmol/L (2-11)
[2020-11-23] MEDS: Mometasone/Formoter 100/5 MDI INH SCH ×2 (07:57→20:36)
[2020-11-23] MEDS: Furosemide 40 mg/4 ml IV VIAL IV SCH ×2 (08:59→18:05)
[2020-11-23] MEDS: KCL 20 MEQ/100 ML IVPREMIX 20 MEQ/100 ML BAG IV SCH ×2 (15:41→18:10)
[2020-11-23] MEDS: Levofloxacin 750 MG IVPREMIX 750 MG/150 ML BAG IVPB SCH (18:06)
[2020-11-23] MEDS ORDERED: Insulin GLARGINE 100 un/ml 10 ml VIAL SUBCUT SCH (21:00)
[2020-11-24] MEDS: metroNIDAZOLE IV 500 MG/100ML 500 MG/100 ML BAG IVPB SCH ×3 (04:00→20:59)
[2020-11-24] MEDS: Heparin 5000 UNITS/ML 1 mL VIAL SUBCUT SCH ×3 (06:04→21:00)
[2020-11-24] MEDS: Mometasone/Formoter 100/5 MDI INH SCH ×2 (07:16→19:20)
[2020-11-24 08:06] LABS: BUN/Creatinine Ratio 13.7 (8-20); Calcium 8.5 mg/dL (8.6-10.3); EGFR African American 32.7 (>60); Potassium 3.3 mmol/L (3.5-5.0)
[2020-11-24] MEDS: Furosemide 40 mg/4 ml IV VIAL IV SCH ×2 (08:24→09:54)
[2020-11-24] MEDS ORDERED: KCL 20 MEQ/100 ML IVPREMIX 20 MEQ/100 ML BAG IV SCH (11:00)
[2020-11-24 15:18] LABS: Magnesium 1.6 mg/dL (1.9-2.7)
[2020-11-24] MEDS ORDERED: Magnesium Sulfate IV 3 GM in NS 0.9% 100 ml BAG 100 ML IVPB ONE (15:30)
[2020-11-24] MEDS: Prochlorperazine 5 mg/ml 2 ml VIAL (10 mg) IV PRN (18:25)
[2020-11-24] MEDS: Insulin GLARGINE 100 un/ml 10 ml VIAL SUBCUT SCH (20:56)
[2020-11-25] MEDS: metroNIDAZOLE IV 500 MG/100ML 500 MG/100 ML BAG IVPB SCH ×2 (04:15→12:32)
[2020-11-25] MEDS: Heparin 5000 UNITS/ML 1 mL VIAL SUBCUT SCH ×3 (04:50→23:07)
[2020-11-25 06:56] LABS: ABS Basophils 0.1 10^3/ul (0-0.2); ABS Eosinophils 0.1 10^3/ul (0-0.6); ABS Monocytes 0.7 10^3/ul (0-0.8); ABS Neutrophils 3.9 10^3/ul (1.5-7.7); Eosinophil % 1.8 %; Hematocrit 27 % (35-47); Hemoglobin 8.8 g/dL (12.0-16.0); Lymphocyte % 17.9 %; Mean Corpuscular HGB Conc 33 g/dL (31-36); Mean Corpuscular Hemoglobin 28 pg (27-31); Mean Corpuscular Volume 87 fL (80-97); Mean Platelet Volume 7.6 fL (7.4-10.4); Nucleated Red Blood Cells % 0.1; Platelet Count 293 10^3/uL (150-450); Red Blood Count 3.11 10^6 /uL (3.70-4.87); Red Cell Distribution Width 17 % (10-15); White Blood Count 5.8 10^3/uL (3.5-10.8)
[2020-11-25 07:17] LABS: BUN/Creatinine Ratio 13.7 (8-20); Calcium 8.8 mg/dL (8.6-10.3); EGFR African American 34.4 (>60); EGFR Non-African American 28.4 (>60); Magnesium 2.2 mg/dL (1.9-2.7); Potassium 3.4 mmol/L (3.5-5.0)
[2020-11-25] MEDS: Furosemide 40 mg/4 ml IV VIAL IV SCH (08:52)
[2020-11-25] MEDS: Prochlorperazine 5 mg/ml 2 ml VIAL (10 mg) IV PRN ×2 (09:00→17:45)
[2020-11-25] MEDS: KCL 10 MEQ/50 ML IVPREMIX 10 MEQ/50 ML BAG IV SCH ×2 (09:24→10:53)
[2020-11-25] MEDS: Mometasone/Formoter 100/5 MDI INH SCH ×2 (09:31→19:06)
[2020-11-25] MEDS: Levofloxacin 750 MG IVPREMIX 750 MG/150 ML BAG IVPB SCH (17:37)
[2020-11-25] MEDS: Insulin GLARGINE 100 un/ml 10 ml VIAL SUBCUT SCH (23:06)
[2020-11-26] MEDS: Heparin 5000 UNITS/ML 1 mL VIAL SUBCUT SCH ×3 (05:46→21:05)
[2020-11-26 08:03] LABS: CO2 Carbon Dioxide 21 mmol/L (22-32); Chloride 99 mmol/L (101-111); Sodium 132 mmol/L (135-145)
[2020-11-26] MEDS: Furosemide 40 mg/4 ml IV VIAL IV SCH (08:03)
[2020-11-26 08:04] LABS: Anion Gap 12 mmol/L (2-11)
[2020-11-26 08:09] LABS: BUN/Creatinine Ratio 13.6 (8-20); Blood Urea Nitrogen 23 mg/dL (6-24); EGFR African American 35.8 (>60); EGFR Non-African American 29.6 (>60); Glucose 139 mg/dL (70-100)
[2020-11-26] MEDS: Mometasone/Formoter 100/5 MDI INH SCH ×2 (08:24→19:16)
[2020-11-26] MEDS: Prochlorperazine 5 mg/ml 2 ml VIAL (10 mg) IV PRN (10:52)
[2020-11-26 16:06] LABS: ABS Lymphocytes 0.6 10^3/ul (1.0-4.8); ABS Monocytes 0.7 10^3/ul (0-0.8); ABS Neutrophils 4.5 10^3/ul (1.5-7.7); Eosinophil % 0.7 %; Hematocrit 29 % (35-47); Hemoglobin 9.4 g/dL (12.0-16.0); Lymphocyte % 10.9 %; Mean Corpuscular HGB Conc 33 g/dL (31-36); Mean Corpuscular Hemoglobin 28 pg (27-31); Mean Corpuscular Volume 86 fL (80-97); Mean Platelet Volume 7.4 fL (7.4-10.4); Platelet Count 336 10^3/uL (150-450); Red Blood Count 3.35 10^6 /uL (3.70-4.87); Red Cell Distribution Width 16 % (10-15); White Blood Count 5.9 10^3/uL (3.5-10.8)
[2020-11-26 16:22] LABS: Magnesium 1.7 mg/dL (1.9-2.7); Potassium Redraw 3.2 mmol/L (3.5-5.0)
[2020-11-26] MEDS: Insulin GLARGINE 100 un/ml 10 ml VIAL SUBCUT SCH (21:07)
[2020-11-27] MEDS: Heparin 5000 UNITS/ML 1 mL VIAL SUBCUT SCH ×3 (05:42→21:25)
[2020-11-27 06:04] LABS: ABS Eosinophils 0.1 10^3/ul (0-0.6); ABS Lymphocytes 1.1 10^3/ul (1.0-4.8); ABS Monocytes 0.6 10^3/ul (0-0.8); ABS Neutrophils 3.3 10^3/ul (1.5-7.7); Hematocrit 30 % (35-47); Hemoglobin 9.6 g/dL (12.0-16.0); Lymphocyte % 21.2 %; Mean Corpuscular HGB Conc 33 g/dL (31-36); Mean Corpuscular Hemoglobin 28 pg (27-31); Mean Corpuscular Volume 86 fL (80-97); Mean Platelet Volume 7.3 fL (7.4-10.4); Platelet Count 364 10^3/uL (150-450); Red Blood Count 3.42 10^6 /uL (3.70-4.87); Red Cell Distribution Width 16 % (10-15); White Blood Count 5.1 10^3/uL (3.5-10.8)
[2020-11-27 06:22] LABS: BUN/Creatinine Ratio 13.5 (8-20); Calcium 9.2 mg/dL (8.6-10.3); EGFR African American 35.5 (>60); EGFR Non-African American 29.4 (>60); Magnesium 1.7 mg/dL (1.9-2.7)
[2020-11-27] MEDS: Mometasone/Formoter 100/5 MDI INH SCH ×2 (07:24→20:15)
[2020-11-27] MEDS ORDERED: Magnesium Sulfate IV 3 GM in NS 0.9% 100 ml BAG 100 ML IVPB ONE (07:30)
[2020-11-27] MEDS: Furosemide 40 mg/4 ml IV VIAL IV SCH (08:05)
[2020-11-27] MEDS: KCL 20 MEQ/100 ML IVPREMIX 20 MEQ/100 ML BAG IV SCH ×3 (08:08→18:02)
[2020-11-27] MEDS: Insulin GLARGINE 100 un/ml 10 ml VIAL SUBCUT SCH (21:26)
[2020-11-28] MEDS: Heparin 5000 UNITS/ML 1 mL VIAL SUBCUT SCH ×2 (05:56→13:53)
[2020-11-28] MEDS: Mometasone/Formoter 100/5 MDI INH SCH (08:53)
[2020-11-28 12:08] LABS: ABS Eosinophils 0.1 10^3/ul (0-0.6); ABS Monocytes 0.5 10^3/ul (0-0.8); ABS Neutrophils 3.8 10^3/ul (1.5-7.7); Eosinophil % 1.7 %; Hematocrit 29 % (35-47); Hemoglobin 9.5 g/dL (12.0-16.0); Lymphocyte % 18.2 %; Mean Corpuscular HGB Conc 33 g/dL (31-36); Mean Corpuscular Hemoglobin 29 pg (27-31); Mean Corpuscular Volume 86 fL (80-97); Mean Platelet Volume 7.2 fL (7.4-10.4); Platelet Count 405 10^3/uL (150-450); Red Blood Count 3.34 10^6 /uL (3.70-4.87); Red Cell Distribution Width 17 % (10-15); White Blood Count 5.4 10^3/uL (3.5-10.8)
[2020-11-28 12:26] LABS: BUN/Creatinine Ratio 15.1 (8-20); C Reactive Protein 5.98 mg/L (<8.01); Calcium 9.1 mg/dL (8.6-10.3); EGFR African American 35.1 (>60); Potassium 3.5 mmol/L (3.5-5.0)
[2020-11-28 16:16] VITALS: BP 122/53
[2020-11-29] MEDS ORDERED: Scopolamine PATCH Remove NOTE PATCH OFF SCH (15:00)
== END 2020-11-28 18:15 | disposition home or self-care (01) | DRG 371 ==
LOC: ED 09:18 → MED 13:16
PROVIDERS: ADMIT Hospitalist; ATTEND Internal Medicine

== ENCOUNTER 2024-04-27 10:31 | Observation (INO) ==
[~2024-04-27 10:31] MED LIST changes: -Buffered Lidocaine 0.9% SYRIN* 5 ML/SYR SYRINGE INTRADERM ONE; +Buffered Lidocaine 1% SYRIN 1 ml INTRADERM ONE; -Famotidine IV* 10 MG/ML 2 ML (20 mg) IV ONE; +Lactated Ringers 1000 ml BAG 1,000 ML IV SCH; +Metoclopramide 5 MG/ML VIAL (10 mg) IV PRN; +NS 0.45% 1000 ml BAG 1,000 ML IV SCH; +Naloxone 0.4 mg VIAL 0.4 mg/ml 1 ml VIAL IV PRN; +Ondansetron 4 mg VIAL 2 MG/ML 2 ml VIAL IV PRN
[2024-04-27] MEDS ORDERED: ceFAZolin 2 GM PREMIX 2 GM/50 ML BAG ONE (12:13)
[2024-04-27] MEDS: Scopolamine 1 mg/72hr PATCH TRANSDERM ONE (12:14)
[2024-04-27 12:37] LABS: Rapid COVID-19 Molecular Undetected (Undetected)
[2024-04-27] MEDS ORDERED: Propofol 10 MG/ML 20 ML BTL ONE (13:30)
[2024-04-27] MEDS ORDERED: Midazolam 2 mg/2 ml VIAL 1 mg/ml 2 ml VIAL (2 mg) ONE (14:34)
[2024-04-27] MEDS ORDERED: fentaNYL 100 mcg/2 ml 50 MCG/ML VIAL ONE ×3 (14:35→18:26)
[2024-04-27] MEDS ORDERED: ROPIVACAINE 5 MG/ML 30 ML BTL (0.5%) ONE ×2 (14:37→15:10)
[2024-04-27] MEDS ORDERED: Lidocaine 2% PF 5 ML VIAL ONE (15:45)
[2024-04-27] MEDS ORDERED: Phenylephrine 40 mcg/mL 10mL (400mcg) SYRINGE ONE (16:04)
[2024-04-27] MEDS ORDERED: HYDROmorphone 0.5 MG/0.5 ML SYRINGE ONE (16:42)
[2024-04-27] MEDS ORDERED: Ondansetron ODT 4 mg TAB 4 MG TAB PO PRN (17:59)
[2024-04-27] MEDS ORDERED: Lactulose 30 ml UDC PO PRN (17:59)
[2024-04-27] MEDS ORDERED: Calcium Carb (TUMS) 500 mg CHEW TAB PO PRN (17:59)
[2024-04-27] MEDS ORDERED: Magnesium Hydroxide LIQ 30 ML UDC PO PRN (17:59)
[2024-04-27] MEDS ORDERED: Morphine 2 MG/ML SYRINGE IV PRN (17:59)
[2024-04-27] MEDS ORDERED: Ondansetron 4 mg VIAL 2 MG/ML 2 ml VIAL ONE (18:02)
[2024-04-27] MEDS ORDERED: Acetaminophen IV 1 GM/100ML 1,000 MG/100 ML BAG IV ONE (18:28)
[2024-04-27] MEDS: fentaNYL 100 mcg/2 ml 50 MCG/ML VIAL IV PRN (18:30)
[2024-04-27] MEDS: Acetaminophen IV 1 GM/100ML 1,000 MG/100 ML BAG IV ONE (18:31)
[2024-04-27] MEDS: Lactated Ringers 1000 ml BAG 1,000 ML IV SCH (21:48)
[2024-04-27] MEDS: Magnesium Hydroxide LIQ 30 ML UDC PO SCH (21:51)
[2024-04-28] MEDS: ceFAZolin 2 GM PREMIX 2 GM/50 ML BAG IV SCH (00:12)
[2024-04-28] MEDS: Lactated Ringers 1000 ml BAG 1,000 ML IV SCH (01:01)
[2024-04-28] MEDS ORDERED: Dextrose 50% Syringe 50 ml 25 GM/50 ML SYRINGE IV PUSH PRN (06:29)
[2024-04-28 06:35] LABS: Hematocrit 33.3 % (35-45); Mean Platelet Volume 8.7 fL (7.5-11.2); Platelet Count 184 10^3/uL (150-450)
[2024-04-28] MEDS ORDERED: Patiromer POWDER 8.4 GM PAK PO SCH (07:00)
[2024-04-28 07:19] LABS: Calcium 8.6 mg/dL (8.6-10.3); Creatinine, Serum 2.33 mg/dL (0.51-0.95); Potassium 4.7 mmol/L (3.5-5.0); eGFR CKD-EPI 20.9 (>60)
[2024-04-28] MEDS: Insulin GLARGINE 100 un/ml 10 ml VIAL SUBCUT SCH (08:05)
[2024-04-28] MEDS: Vitamin THERAPEUTIC TAB PO SCH (08:05)
[2024-04-28] MEDS: Patiromer POWDER 8.4 GM PAK PO SCH ×2 (08:11→14:27)
[2024-04-29 05:51] LABS: Hematocrit 28.8 % (35-45); Hemoglobin 9.6 g/dL (11.5-14.3); Mean Platelet Volume 8.9 fL (7.5-11.2); Platelet Count 158 10^3/uL (150-450)
[2024-04-29] MEDS: Ondansetron 4 mg VIAL 2 MG/ML 2 ml VIAL IV PRN (08:11)
[2024-04-30] MEDS: Patiromer POWDER 8.4 GM PAK PO SCH (06:04)
[2024-04-30 06:20] LABS: Hematocrit 28.2 % (35-45); Hemoglobin 9.5 g/dL (11.5-14.3); Mean Platelet Volume 8.7 fL (7.5-11.2); Platelet Count 148 10^3/uL (150-450)
[2024-05-01 06:33] LABS: Hematocrit 31.2 % (35-45); Hemoglobin 10.4 g/dL (11.5-14.3); Mean Platelet Volume 8.3 fL (7.5-11.2); Platelet Count 195 10^3/uL (150-450)
[2024-05-01 10:37] VITALS: BP 134/59
== END 2024-05-01 13:30 | disposition home or self-care (01) ==
LOC: OR 10:31 → SSU 10:31
PROVIDERS: ADMIT Orthopaedic Surgery Adult Reconstructive Orthopaedic Surgery; ATTEND Orthopaedic Surgery Adult Reconstructive Orthopaedic Surgery